=== PATIENT | male | born 1935 | race Caucasian/White ===

== ENCOUNTER 2017-10-08 09:49 | Emergency (ER) | payer MEDICARE, OTHER ==
[2017-10-08 10:37] LABS: #Eosinphils 0.1 thou/uL (0.0-0.7); #Lymphocytes 1.4 thou/uL (1.20-3.40); #Monocytes 0.9 thou/uL (0.11-0.59); #Neutrophils 7.8 thou/uL (1.40-6.50); %Basophils 0.3 % (0.0-1.0); %Eosinophils 0.8 % (0.0-10.0); %Lymphocytes 13.4 % (21.0-51.0); %Monocytes 8.3 % (0.0-10.0); %Neutrophils 77.1 % (42.0-75.0); Hemoglobin 14.1 g/dL (14.0-18.0); Mean Corpuscular HGB CONC 34.6 g/dL (32.0-36.0); Mean Corpuscular Hemoglobin 34.7 pg (27.0-31.0); Mean Platelet Volume 9.7 fL (7.4-10.4); Platelet Count 132 thou/uL (130-400); Red Blood Cell (RBC) Count 4.07 mill/uL (4.70-6.10); White Blood Cell (WBC) Count 10.2 thou/uL (4.8-10.8)
[2017-10-08 11:02] LABS: ALT (SGPT) 9 U/L (8-55); AST (SGOT) 16 U/L (5-34); Albumin 3.9 g/dL (3.4-4.8); Alkaline Phosphatase 71 U/L (40-150); Anion Gap 15 mmol/L (10-20); BUN (Urea Nitrogen) 25 mg/dL (8.4-25.7); Bilirubin, Total 0.6 mg/dL (0.2-1.2); Calc. Creatinine Clearance 0 mL/min (70-130); Calcium 9.4 mg/dL (7.8-10.44); Carbon Dioxide 26 mmol/L (23-31); Chloride 102 mmol/L (98-107); Estimated GFR-MDRD 54; Globulin 2.5 g/dL (2.4-3.5); Glucose 154 mg/dL (83-110); Lipase Less than 4 U/L (8-78); Potassium 4.6 mmol/L (3.5-5.1); Protein, Total 6.4 g/dL (5.8-8.1); Sodium 138 mmol/L (136-145)
[2017-10-08 13:10] LABS: CKMB 0.9 ng/mL (0-6.6); Troponin I Less than 0.010 ng/mL (< 0.028)
--- NOTE | 2017-10-08 14:07 | RAD ---
4 VIEWS LEFT KNEE: Date: 10/08/17 HISTORY: Left knee pain after fall. FINDINGS: AP, lateral, and both oblique views of left knee obtained. Four views of the left knee demonstrate os teophytes seen in the medial compartment of the left knee. There are some sclerotic changes, as well as flattening of the medial tibial plateau. Osteophytes also seen in the lateral compartment and extensive osteophytes seen in the anterior marisa rtment of the left knee. IMPRESSION: Extensive left knee osteoarthritic changes. POS: KELLY
[2017-10-08 14:21] LABS: Bilirubin Negative (Negative); Blood, Urine Negative (Negative); Clarity CLEAR (Clear); Glucose, Urine (Dipstick) Negative (Negative); Leukocyte Trace (Negative); Nitrite Negative (Negative); Protein, Urine (Dipstick) Trace mg/dL (Neg-Trace); Specific Gravity, Urine 1.018 (1.002-1.036); pH, Urine 6.5 (5.0-9.0)
--- NOTE | 2017-10-08 14:21 | CT ---
CT BRAIN WITHOUT CONTRAST; Date: 10/08/17 HISTORY: Altered mental status. FINDINGS: Comparison made with exam of 08/10/15. No evidence of infarct, hemorrhage, midline shift, or abnormal extra-axial fluid collections are seen . The ventricular size is stable and the basilar cisterns are patent. The bony calvarium is intact. T he visualized paranasal sinuses are well aerated. IMPRESSION: No CT evidence of acute intracranial process. POS: OFF
[2017-10-08 14:24] LABS: Bacteria/HPF None Seen HPF (None Seen); Hyaline Casts/LPF 7-10 HYALINE CAST LPF (0-3 Hyaline); Pathc Cast-AUWi Flag 1.01 (0-2.49); Squamous Epithelial 0-3 HPF (0-3); WBC/HPF 0-3 HPF (0-3)
[2017-10-08 14:25] LABS: Renal Epithelial None Seen HPF (0-3); Transitional Epithelial NONE SEEN HPF (0-3)
== END 2017-10-08 15:07 | disposition home or self-care (01) ==
LOC: ERS 09:49
DX: F03.90 Unspecified dementia, unspecified severity, without behavioral disturbance, psychotic disturbance, mood disturbance, and anxiety (principal); M19.90 Unspecified osteoarthritis, unspecified site; E78.5 Hyperlipidemia, unspecified; I10 Essential (primary) hypertension; M10.9 Gout, unspecified; Z79.82 Long term (current) use of aspirin; Z79.899 Other long term (current) drug therapy; W19.XXXA Unspecified fall, initial encounter; Y92.009 Unspecified place in unspecified non-institutional (private) residence as the place of occurrence of the external cause
CPT/HCPCS: 51701; 70450; 80053; 81003; 81015; 82140; 82553; 83690; 84484; 85025

== ENCOUNTER 2017-10-09 20:41 | Inpatient (IN) | payer MEDICARE, OTHER ==
[~2017-10-09 20:41] MED LIST: ISOVUE-370 76%-LOCM 1 ML ONE
[2017-10-09 21:04] LABS: Bilirubin Negative (Negative); Blood, Urine Negative (Negative); Clarity CLEAR (Clear); Glucose, Urine (Dipstick) Negative (Negative); Leukocyte Trace (Negative); Nitrite Negative (Negative); Protein, Urine (Dipstick) Negative (Neg-Trace); Specific Gravity, Urine 1.016 (1.002-1.036); Urobilinogen 0.2 mg/dL (0.2-1.0); pH, Urine 5.5 (5.0-9.0)
[2017-10-09 21:05] LABS: Bacteria/HPF None Seen HPF (None Seen); Hyaline Casts/LPF 0-3 HYALINE CAST LPF (0-3 Hyaline); Pathc Cast-AUWi Flag 0.29 (0-2.49); Squamous Epithelial 0-3 HPF (0-3); WBC/HPF 0-3 HPF (0-3)
[2017-10-09 21:07] LABS: Yeast-AUWi Flag 40.9 (0-25.0)
[2017-10-09 21:17] LABS: RBC/HPF 0-3 HPF (0-3)
[2017-10-09 22:17] LABS: #Lymphocytes 0.8 thou/uL (1.20-3.40); #Monocytes 0.8 thou/uL (0.11-0.59); %Basophils 0.2 % (0.0-1.0); %Eosinophils 0.5 % (0.0-10.0); %Lymphocytes 9.3 % (21.0-51.0); %Monocytes 9.4 % (0.0-10.0); %Neutrophils 80.6 % (42.0-75.0); Hemoglobin 14.2 g/dL (14.0-18.0); Mean Corpuscular HGB CONC 35.3 g/dL (32.0-36.0); Mean Corpuscular Hemoglobin 34.7 pg (27.0-31.0); Mean Corpuscular Volume 98.3 fL (78.0-98.0); Mean Platelet Volume 9.2 fL (7.4-10.4); Platelet Count 128 thou/uL (130-400); RBC Distribution Width 12.6 % (11.5-14.5); Red Blood Cell (RBC) Count 4.09 mill/uL (4.70-6.10); White Blood Cell (WBC) Count 8.7 thou/uL (4.8-10.8)
[2017-10-09 23:03] LABS: ALT (SGPT) 11 U/L (8-55); AST (SGOT) 22 U/L (5-34); Albumin 3.8 g/dL (3.4-4.8); Alkaline Phosphatase 71 U/L (40-150); Anion Gap 16 mmol/L (10-20); BUN (Urea Nitrogen) 32 mg/dL (8.4-25.7); Bilirubin, Total 0.5 mg/dL (0.2-1.2); CK (CPK) 49 U/L (30-200); Calc. Creatinine Clearance 0 mL/min (70-130); Calcium 9.5 mg/dL (7.8-10.44); Carbon Dioxide 24 mmol/L (23-31); Chloride 102 mmol/L (98-107); Estimated GFR-MDRD 38; Globulin 2.6 g/dL (2.4-3.5); Glucose 134 mg/dL (83-110); Lipase 4 U/L (8-78); Potassium 4.5 mmol/L (3.5-5.1); Protein, Total 6.4 g/dL (5.8-8.1); Sodium 137 mmol/L (136-145)
[2017-10-09 23:07] LABS: Troponin I Less than 0.010 ng/mL (< 0.028)
[2017-10-09] MEDS ORDERED: Acetaminophen 500 MG TAB ONE (23:32)
[2017-10-10] MEDS ORDERED: Lorazepam 2 MG/ML VIAL ONE (00:10)
[2017-10-10] MEDS ORDERED: Ziprasidone 20 MG VIAL ONE (01:13)
[2017-10-10] MEDS ORDERED: Meropenem 1 GM in Sodium Chloride 0.9% 100 ML IVPB SCH ×2 (02:15→10:00)
[2017-10-10] MEDS ORDERED: Acetaminophen 325 MG TAB PO PRN ×2 (03:02→16:34)
[2017-10-10] MEDS ORDERED: Ondansetron ODT 4 MG TAB SL PRN (03:02)
[2017-10-10] MEDS ORDERED: Sodium Chloride 0.9% 1,000 ML IV SCH (03:02)
[2017-10-10] MEDS ORDERED: Ondansetron HCl/PF 4 MG/2 ML Vial IVP PRN (03:02)
[2017-10-10 03:12] VITALS: BMI 32.7
[2017-10-10] MEDS ORDERED: Prevnar 13-Val Conj/PF 0.5 ML SYRINGE IM ONE (09:00)
[2017-10-10 09:25] LABS: #Eosinphils 0.1 thou/uL (0.0-0.7); #Lymphocytes 0.9 thou/uL (1.20-3.40); #Monocytes 1.1 thou/uL (0.11-0.59); #Neutrophils 6.5 thou/uL (1.40-6.50); %Basophils 0.3 % (0.0-1.0); %Eosinophils 0.8 % (0.0-10.0); %Lymphocytes 10.5 % (21.0-51.0); %Monocytes 12.8 % (0.0-10.0); %Neutrophils 75.6 % (42.0-75.0); Hemoglobin 13.3 g/dL (14.0-18.0); Mean Corpuscular HGB CONC 35.6 g/dL (32.0-36.0); Mean Corpuscular Hemoglobin 34.9 pg (27.0-31.0); Mean Corpuscular Volume 98.1 fL (78.0-98.0); Mean Platelet Volume 9.6 fL (7.4-10.4); Platelet Count 118 thou/uL (130-400); RBC Distribution Width 12.6 % (11.5-14.5); Red Blood Cell (RBC) Count 3.82 mill/uL (4.70-6.10); White Blood Cell (WBC) Count 8.6 thou/uL (4.8-10.8)
[2017-10-10] MEDS ORDERED: metroNIDAZOLE 500 MG in Premix Bag 1 BAG IVPB SCH (10:00)
[2017-10-10] MEDS: Ciprofloxacin Lactate/D5W 200 MG in Premix Bag 1 BAG IVPB SCH ×2 (10:19→20:30)
[2017-10-10] MEDS: Sodium Chloride 0.9% 1,000 ML IV SCH ×2 (10:32→20:34)
[2017-10-10 10:44] LABS: Lactic Acid 0.8 mmol/L (0.5-2.2)
[2017-10-10 11:35] LABS: Anion Gap 13 mmol/L (10-20); BUN (Urea Nitrogen) 29 mg/dL (8.4-25.7); Calc. Creatinine Clearance 60 mL/min (70-130); Calcium 9.3 mg/dL (7.8-10.44); Carbon Dioxide 27 mmol/L (23-31); Chloride 104 mmol/L (98-107); Estimated GFR-MDRD 51; Glucose 110 mg/dL (83-110); Potassium 4.5 mmol/L (3.5-5.1); Sodium 139 mmol/L (136-145)
[2017-10-10] MEDS: metroNIDAZOLE 500 MG in Premix Bag 1 BAG IVPB SCH ×2 (13:20→22:54)
--- NOTE | 2017-10-10 14:30 | CT ---
PRELIMINARY REPORT/[facility]/EMERGENTY AFTER-HOURS PROCEDURE CT Abdomen and Pelvis With Intravenous Contrast CLINICAL HISTORY: 82 years old, male; fever. Yesterday had fatigue and abdominal pain that went away. Pt started fever and diarrhea on day of arrival. Intermittent confusion worsening past two weeks. HX high BP, dementia , 1 episode of stroke, decreased kidney function, takes lasix mwf. TECHNIQUE: Axial computed tomography images of the abdomen and pelvis with intravenous contrast. Coronal reforma tted images were created and reviewed. CONTRAST: 60 mL of contrast administered intravenously. COMPARISON: No relevant prior studies available. FINDINGS: Lung bases: No acute infiltrate in either lung base. Heart: Coronary artery and aortic / mitral valve annulus calcification. ABDOMEN: Liver: Unremarkable. No mass. Gallbladder and bile ducts: Unremarkable. No calcified stones. No ductal dilation. Pancreas: Unremarkable. No mass. No ductal dilation. Spleen: Unremarkable. No splenomegaly. Adrenals: Unremarkable. No mass. Kidneys and ureters: Unremarkable. No solid mass. No hydronephrosis. Stomach and bowel: Mild wall thickening may involve the cecum and ascending colon, such as with a mil d colitis. No generalized ileus or obstruction. Moderate amount of stool in portions of the colon. Scattered colon diverticuli without evidence of diverticulitis. PELVIS: Appendix: Normal appendix. Bladder: Unremarkable. No mass. Reproductive: Unremarkable as visualized. ABDOMEN and PELVIS: Intraperitoneal space: Unremarkable. No free air. No significant fluid collection. Bones/joints: Spinal degenerative changes. No acute fracture. No dislocation. Soft tissues: Unremarkable. Vasculature: Unremarkable. No abdominal aortic aneurysm. Lymph nodes: Unremarkable. No enlarged lymph nodes. IMPRESSION: 1. Mild wall thickening may involve the cecum and ascending colon, such as with a mild colitis. 2. No generalized ileus or obstruction. Moderate amount of stool in portions of the colon. 3. Scattered colon diverticuli without evidence of diverticulitis. Thank you for allowing us to participate in the care of your patient. Dictated and Authenticated by: Chaz Solorzano MD 10/10/2017 1:26 AM Central Time ([place] & [place]) FINAL REPORT Agree with the preliminary report provided. There is some mild suggested wall thickening involving t he cecum portions of the ascending colon which can reflect an underlying cecitis. The appendix appea rs normal. No drainable fluid collection is evident. No additional overt acute abnormality is evide nt. Other findings as detailed within the preliminary report provided. POS: KELLY
[2017-10-10] MEDS: Gabapentin 300 MG CAP PO SCH (20:30)
[2017-10-10] MEDS ORDERED: HYDROcodone/Acetaminophen 5/325 mg Tablet PO PRN (21:53)
--- NOTE | 2017-10-11 01:20 | HP ---
CHIEF COMPLAINT: Abdominal pain, nausea, vomiting, and diarrhea. HOSPITAL COURSE: Patient is a very pleasant 82-year-old male with a history of hypertension, dementi a, essential tremors and hyperlipidemia who initially presented to the hospital with complaints of fe elvis, abdominal pain and diarrhea. Patient's son who is at the bedside states that normally whenever he starts feeling unwell, his mentation worsens which they noticed since yesterday. Patient's family stated that they brought him to the ER for evaluation; however, upon not finding anything, he was di scharged home. However, yesterday he spiked a fever of 101, which concerned them. He also has been having diarrhea since yesterday, so they brought him to the hospital for further evaluation. Patient currently denies any abdominal pain. He denies any chest pain, shortness of breath, nausea, vomitin g or any headaches. Patient denies any neck pain either. Patient's family stated that he actually fell on the 10th which concerned them that is when they brou ght him for evaluation. PAST MEDICAL HISTORY: 1. Dementia. 2. History of essential tremors. 3. Hypertension. 4. Hypercholesterolemia. SOCIAL HISTORY: Denies any alcohol or tobacco use. Smoking history; however, has a history in the p ast of heavy smoking. PAST SURGICAL HISTORY: He has a prostatectomy. ALLERGIES: He has no known drug allergies. MEDICATIONS: As of the followin. Clonidine 0.1 mg daily. 2. Myrbetriq 25 mg daily. 3. Hydrochlorothiazide 25 mg daily. 4. Lisinopril 40 mg daily. 5. Allopurinol 100 mg daily. 6. Amlodipine 10 mg daily. 7. Aspirin 81 mg daily. 8. Celexa 40 mg daily. 9. Gabapentin 300 mg b.i.d. 10. Latanoprost 1 drop each eye daily. 11. Multivitamin 1 daily. REVIEW OF SYSTEMS: All negative except for the ones mentioned above in the HPI. PHYSICAL EXAMINATION: VITAL SIGNS: Temperature 98.4, pulse 74, 94% on room air, blood pressure 136/67. GENERAL: He is awake, alert, oriented to self only. HEENT: Normocephalic, atraumatic. NECK: No lymphadenopathy noted. LUNGS: Clear to auscultation, rhonchi, wheezes noted. CARDIOVASCULAR: S1, S2 present. No murmurs, rubs or gallops. ABDOMEN: Obese, soft. Bowel sounds are present x2. No pain upon palpation. EXTREMITIES: No edema. NEUROLOGIC: No deficits noted. LABORATORY DATA: As of the following WBCs of 8.6, hemoglobin of 13.3, hematocrit of 37.5, platelets of 118. Coagulation is normal. Chemistry: Sodium of 137, potassium 4.5, BUN of 32, creatinine of 1 .74. Troponins x2 were negative which was done on the 10th. His LFTs are normal. He also had a CT abdomen and pelvis, which indicated some wall thickening involving the cecum portion in the ascending colon which can reflect an underlying cystitis and the appendix appeared to be normal. No diverticu litis was noted. ASSESSMENT AND PLAN: Patient is a very pleasant 82-year-old male who presents to the hospital with c omplaints of abdominal pain, nausea, vomiting, and diarrhea. 1. Abdominal pain and diarrhea. The differential at this time could be infectious colitis versus is chemic colitis given his age. Patient, according to the family, has not eaten out. He eats at home and has eaten the same food that they have been eating. Patient's stool has been sent for C. diff wh ich is negative also ova and parasite has been checked. Stool for leukocyte indicated elevated leuko cytosis. Also, Campylobacter was positive; however, I am not sure if this is true. Patient currentl y just has been spiking a fever. We will continue the Cipro and Flagyl for now and consult GI for an y other evaluation. I did check a lactic acid level which was essentially normal. 2. Chronic kidney disease, stable from his baseline. We will continue to monitor. I will continue some gentle hydration. 3. Mild thrombocytopenia. We will continue to monitor. This could be due to his current infectious process. Patient still appears to be a little confused. He is oriented to himself and his family. We will continue to monitor. Of note, I did look at the patient's urine, it did not seem very impre ssive in terms of a urinary tract infection. His microbiology did indicate gram negative rods, which was 50-75,000 and I do not think his current mental status changes secondary to that. I believe the re is some other etiology in terms of his worsening mental status and also given the fact that he is having diarrhea.
[2017-10-11 05:34] LABS: Anion Gap 11 mmol/L (10-20); BUN (Urea Nitrogen) 22 mg/dL (8.4-25.7); Calc. Creatinine Clearance 77 mL/min (70-130); Calcium 9.2 mg/dL (7.8-10.44); Carbon Dioxide 28 mmol/L (23-31); Chloride 105 mmol/L (98-107); Estimated GFR-MDRD 67; Glucose 111 mg/dL (83-110); Sodium 140 mmol/L (136-145)
[2017-10-11] MEDS: metroNIDAZOLE 500 MG in Premix Bag 1 BAG IVPB SCH ×3 (06:15→22:26)
[2017-10-11 06:33] LABS: Band 12 % (5-11); Eosinophils 1 % (0-10); Hemoglobin 13.2 g/dL (14.0-18.0); Lymphocytes 18 % (21-51); MDiff Complete? YES; Mean Corpuscular HGB CONC 34.9 g/dL (32.0-36.0); Mean Corpuscular Hemoglobin 34.7 pg (27.0-31.0); Mean Corpuscular Volume 99.4 fL (78.0-98.0); Mean Platelet Volume 10.7 fL (7.4-10.4); Monocytes 12 % (0-10); Neutrophil 57 % (42-75); PLT Morphology Comment Appears Decreased; Platelet Count 123 thou/uL (130-400); Polychromasia SLIGHT = 2-3 cells (100X) (0-2/hpf); RBC Distribution Width 12.6 % (11.5-14.5); White Blood Cell (WBC) Count 7.7 thou/uL (4.8-10.8)
[2017-10-11] MEDS ORDERED: Non-Formulary Item 1 EACH (Multivitamin [Daily Multiple Vitamin] 1 TAB) PO SCH (09:00)
[2017-10-11] MEDS ORDERED: Non-Formulary Item 1 EACH (Citalopram Hydrobromide [Celexa] 40 MG) PO SCH (09:00)
[2017-10-11] MEDS: Allopurinol 100 MG TAB PO SCH (09:12)
[2017-10-11] MEDS: Citalopram 20 MG TAB PO SCH (09:12)
[2017-10-11] MEDS: Ezetimibe 10 MG TAB PO SCH (09:12)
[2017-10-11] MEDS: Multivit, Therapeutic 1 TAB PO SCH (09:16)
[2017-10-11] MEDS: Gabapentin 300 MG CAP PO SCH ×2 (09:16→20:25)
[2017-10-11] MEDS: Amlodipine 10 MG TAB PO SCH (09:24)
[2017-10-11] MEDS: Ciprofloxacin Lactate/D5W 200 MG in Premix Bag 1 BAG IVPB SCH ×2 (09:46→20:25)
[2017-10-11] MEDS: Latanoprost 0.005% Ophth Soln 2.5 ml Bottle EA EYE SCH (09:47)
--- NOTE | 2017-10-11 09:58 | CON ---
DATE OF CONSULTATION: 10/10/2017 REASON FOR CONSULTATION: Colitis. HISTORY OF PRESENT ILLNESS: Mr. Rubio is a pleasant 82-year-old gentleman who was admitted to the hospital on the with severe diarrhea and confusion. He had gone to the emergency room on the [facility] of the . His family brought him there as he had worsening in baseline confusion, though that he was never told that he probably just had worsening dementia. He was sent home and also the next day began to have fever and chills and profuse diarrhea and he was brought back to the emergency room by his family. In the first night, he had had a fall and actually CAT scan has had to make sure nohemi t was okay and it was really unchanged from a CAT scan he had several years ago. Also, x-ray'ed the knee which was okay. No signs of fracture. When he returned on the , CAT scan was obtained that showed colitis. Family notes that he just started yesterday with a fever. There were no sick conta cts. The patient lives at home with his son. They all ate the same dinner and no one else became il l. He has had no change in medications recently. There was some mild wall thickening in the cecal p ortion of the ascending colon, which was felt related to be cecitis and inflammation. There was mode rate amount of stool in other parts of the colon, there were no signs of diverticulitis. I talked with the son, who gives most of the history. His father was much more confused yesterday an d is doing much better today. Last night, in fact, he was combative and very confused; this evening, he is actually eating and having a lot less diarrhea. He did not have any bleeding as far as he kne w. ADMITTING PHYSICIAN. None. REVIEW OF SYSTEMS: Really unable to be obtained from the patient, as he is still a little bit confus ed. Constitutional: There was fever, chills, fatigue. No sweats. HEENT: Otherwise, negative, as reviewed per the emergency admission note and the HPI, admitting physician note. I concur with the r eview of systems as documented. PAST MEDICAL HISTORY: Mild dementia. He has had previous colonoscopies and screening in [place], [place] as he is from [place], [place]. Mild hypertension, gout, chronic osteoarthritis. PAST SURGICAL HISTORY: TURP. PSYCHIATRIC HISTORY: Negative. SOCIAL HISTORY: Negative for alcohol, drugs, or tobacco. Lives with the family. HOME MEDICATIONS: Clonidine, multivitamin, Myrbetriq, Mobic, lansoprazole, lisinopril, latanoprost e ye drops, hydrochlorothiazide, hydrocodone p.r.n., gabapentin, Zetia, Celexa, amlodipine, allopurinol . PHYSICAL EXAMINATION: GENERAL: Patient is resting comfortably in bed. He is very pleasant. VITAL SIGNS: Temperature max 99.1, temperature on admission was 101.2, temperature current 98, pulse 58, blood pressure 128/55. GENERAL: He is a large man. He has got some senile sunspots on his arms. Oropharynx without lesion s. His mucous membranes are moist. LUNGS: Clear. HEART: Regular rate and rhythm without clicks or murmurs. ABDOMEN: Soft, nontender without rebound or guarding. LABORATORY DATA AND X-RAY FINDINGS: White count is 8.6, hemoglobin 13.3, platelet count is 118 down from 127 on admission. INR was 1. Sodium 137, potassium 4.5, BUN and creatinine were 32 and 1.7 on admission, now 29 and 1.34. Liver function tests were normal. Lipase was 4. Stool studies were pos itive. Urine was positive for Gram-negative rods. Parasite screen was negative for cryptosporidium and Giardia. C. difficile was negative, toxin antigen. Campylobacter positive for Campylobacter ant igen, negative, toxin. Sugars, lactoferrin in stool positive. Stool cultures pending. ASSESSMENT: This patient was admitted to the hospital, after coming to the hospital the night before with confusion; however, the next day developed fever and severe diarrhea and was at worsening confu eben, some signs of mild dehydration, some cecitis on CAT scan. Stools growing out were showing posi tive Campylobacter antigen. I suspect the patient has had an infectious colitis; it could be Campylo bacter, it may be something viral or something else. Campylobacter antigen here seems to be positive , quite frequently negative with it not being detected in stool cultures. He has responded well to I V fluids and antibiotics have been chosen. I would continue that course of treatment. I will slowly advance his diet. Tomorrow, if he is getting out of bed and walking and if he is less confused, hop efully, maybe he can go home in about 48 hours on Saturday. We will follow along with you.
[2017-10-11] MEDS: Sodium Chloride 0.9% 1,000 ML IV SCH (12:52)
--- NOTE | 2017-10-11 13:42 | PRG ---
DATE OF SERVICE: 10/11/2017 SUBJECTIVE: Mr. Rubio and his son noticed he is having less diarrhea down to about 4 today, althou gh he is having some incontinence, though he has had no fever. PHYSICAL EXAMINATION: VITAL SIGNS: Temperature is 97.9, pulse 58, blood pressure 143/80. GENERAL: He is more alert, more coherent. LUNGS: Clear. ABDOMEN: Soft and nontender. EXTREMITIES: No clubbing, cyanosis or edema. LABORATORY STUDIES: White count 7.7, hemoglobin 13.2, platelet count 123. Sodium 140, potassium 4, BUN and creatinine are 22 and 1.05. ASSESSMENT: Severe diarrheal illness. Only findings thus far is been the stool that is positive for Campylobacter antigen. This may not be the true pathogen, but I think an infectious etiology would explain how sick he was. He seems to be improving. RECOMMENDATIONS: 1. Five days of fluoroquinolone and Flagyl on discharge. 2. Probiotic on discharge. 3. Advance diet. 4. Physical therapy. I think once he regained some bowel incontinence, he can probably go home, hop efully that will be the next day or two. At this time, we will follow from a distance. Dr. Flores i will be plant technician/control room operator over the weekend if needed.
--- NOTE | 2017-10-11 14:50 | PQF ---
DATE: 10-11-17 ATTN: DR. CLARK WATKINS Please exercise your independent, professional judgment in responding to the clarification form. Clinical indicators are provided on the bottom of this form for your review Please check appropriate box(s): [ x ] Encephalopathy: Type: [ x] Acute [ ] Subacute [ ] Chronic Etiology: [ ] Hypertensive [ x] Metabolic [ ] [ ] in the setting of underlying dementia [ ] Other (please specify) [ ] Transient Alteration of Awareness [ ] Other diagnosis [ ] Unable to determine In addition, please specify: Present on Admission (POA): [ x ] Yes [ ] No [ ] Unable to determine For continuity of documentation, please document condition throughout progress notes and discharge summary. Thank You. CLINICAL INDICATORS - SIGNS / SYMPTOMS / LABS ER: CONFUSION IS OFF AND ON AND GOTTEN WORSE THROUGH THE PAST 2 WKS. HX DEMENTIA, HISTORIAN REPORTS CONFUSION, PT BECAME MORE CONFUSED AND SLIGHTLY COMBATIVE, BUT CALMED DOWN WITH PRESENCE OF FAMILY. H&P: PATIENTS SON WHO IS AT BEDSIDE STATES NICO NORMALLY WHENEVER HE STARTS FEELING UNWELL, HIS MENTATION WORSENS WHICH THEY NOTICED SINCE YESTERDAY. I BELIEVE THERE IS SOME OTHER ETIOLOGY IN TERMS OF HIS WORSENING MENTAL STATUS RISK FACTORS : H&P: ABD PAIN AND DIARRHEA. THE DIFFERENTIAL AT THIS TIME COULD BE INFECTIOUS COLITIS VS ISCHEMIC COLITIS, CAMPYLOBACTER WAS POSITIVE, MILD DEHYDRATION TREATMENTS: ER: MEROPENEM IV, IVF, FLAGYL IV, CIPRO IV (This form is maintained as a part of the permanent medical record) 2014 [employer], [place]. All Rights Reserved ANICETO [email or web address] Office: [phone] HENOK
--- NOTE | 2017-10-11 15:07 | PQF ---
DATE: 10-11-17 ATTN: DR. CLARK WATKINS Please exercise your independent, professional judgment in responding to the clarification form. Clinical indicators are provided on the bottom of this form for your review Please check appropriate box(s): [ x ] Acute Renal Failure (ARF) / Acute Kidney Injury (CARMEN) [ ] Acute on Chronic Renal Failure please specify Stage of CKD (see below) [ ] CKD without ARF/CARMEN please specify Stage of CKD [ ] Other diagnosis [ ] Unable to determine In addition, please specify: Present on Admission (POA): [x ] Yes [ ] No [ ] Unable to determine National Kidney Foundation Guidelines for CKD Staging Stage I Kidney damage with normal or increased GFR GFR > 90 Stage II Kidney damage with mildly decreased GFR GFR 60-89 Stage III Kidney damage with moderately decreased GFR GFR 30- 59 Stage IV Kidney damage with severely decreased GFR GFR 16- 29 Stage V Kidney failure GFR<15 ESRD End Stage Renal Disease On dialysis Acute Renal Failure/Acute Kidney Failure defined as: Increases in SCr by (>) 0.3 mg/dl within 48 hours OR- Increases in SCr by (>) 1.5 times baseline, known or presumed to have occurred within the prior 7 days OR- Urine volume < 0.5 ml/kg/hour for 6 hours (KDIGO supplement 2012 for RIFLE/MELYSSA criteria) For continuity of documentation, please document condition throughout progress notes and discharge summary. Thank You. CLINICAL INDICATORS - SIGNS / SYMPTOMS / LABS ER: HX OF DECREASED KIDNEY FUNCTION, TAKES LASIX MWF, FEVER AND DIARRHEA GFR: 10-09-17: 38 10-10-17: 51 10-11-17: 67 CREATININE: 10-09-17: 1.47 10-10-17: 1.34 10-11-17: 1.05 BUN: 10-09-17: 32 10-10-17: 29 10-11-17: 22 H&P: CHRONIC KIDNEY DISEASE, STABLE FROM BASELINE. WE WILL CONTINUE TO MONITOR. I WILL CONTINUE SOME GENTLE HYDRATION. RISK FACTORS: H&P: CHRONIC KIDNEY DISEASE, STABLE FROM BASELINE. WE WILL CONTINUE TO MONITOR. I WILL CONTINUE SOME GENTLE HYDRATION. ER: HX OF DECREASED KIDNEY FUNCTION, TAKES LASIX MWF, FEVER AND DIARRHEA TREATMENTS: H&P: CHRONIC KIDNEY DISEASE, STABLE FROM BASELINE. WE WILL CONTINUE TO MONITOR. I WILL CONTINUE SOME GENTLE HYDRATION. MAR: IVF (This form is maintained as a part of the permanent medical record) 2014 [employer]. All Rights Reserved ANICETO [email or web address] Office: [phone] HENOK
--- NOTE | 2017-10-11 16:54 | PDOC.PN ---
- Subjective Encounter Start Date: 10/11/17 Encounter Start Time: 13:00 PAtient Is seen todayk along with Son at [facility]. Pt still has Diarrhea, and Incontinence, he is very weak, waiting on pT evaluation. - Objective MAR Reviewed: Yes Vital Signs & Weight: Vital Signs (12 hours) Temp Pulse Resp BP BP Pulse Ox 10/11/17 09:24 58 L 143/80 H 10/11/17 08:36 97.9 F 58 L 20 143/80 H 98 10/11/17 08:00 97.9 F 58 L 18 94 L 10/11/17 05:16 98.1 F 61 18 144/69 H 95 Weight Weight 228 lb I&O: 10/10/17 10/11/17 10/12/17 06:59 06:59 06:59 Intake Total 268 Output Total 120 Balance 148 Result Diagrams: 10/11/17 04:33 10/11/17 04:33 Radiology Reviewed by me: Yes Phys Exam - Physical Examination HEENT: PERRLA, moist MMs Neck: no nodes, no JVD Respiratory: no wheezing, no rales Cardiovascular: RRR, no significant murmur Gastrointestinal: soft, non-tender Musculoskeletal: no edema, pulses present Neurological: non-focal, normal sensation Lymphatic: no nodes Psychiatric: normal affect, A&O x 3 Skin: no rash, normal turgor Dx/Plan (1) Dehydration, moderate Code(s): E86.0 - DEHYDRATION Status: Acute Comment: Will continue with IV fluids. Feeling better. (2) Diarrhea Code(s): R19.7 - DIARRHEA, UNSPECIFIED Status: Acute Comment: Will continue with CIpro and flagyl,IV. Stool cultures positive for Campylobacter. GI on Board. No bleeding. pt is very weak, will need Pt/OT evaalutions. (3) Morbid obesity Code(s): E66.01 - MORBID (SEVERE) OBESITY DUE TO EXCESS CALORIES Status: Acute - Plan cont current plan of care, plan discussed w/ family, continue antibiotics, PT/OT , professor of social work, incentive spirometry, DVT proph w/lovenox * . Review of Systems - Review of Systems Eyes: negative: Pain, Vision Change, Conjunctivae Inflammation, Eyelid Inflammation, Redness, Other ENT: negative: Ear Pain, Ear Discharge, Nose Pain, Nose Discharge, Nose Congestion, Mouth Pain, Mouth Swelling, Throat Pain, Throat Swelling, Other Respiratory: negative: Cough, Dry, Shortness of Breath, Hemoptysis, SOB with Excertion, Pleuritic Pain, Sputum, Wheezing Cardiovascular: negative: chest pain, palpitations, orthopnea, paroxysmal nocturnal dyspnea, edema, light headedness, other Gastrointestinal: Diarrhea. negative: Nausea, Vomiting, Abdominal Pain, Constipation, Melena, Hematochezia, Other Genitourinary: negative: Dysuria, Frequency, Incontinence, Hematuria, Retention , Other Musculoskeletal: negative: Neck Pain, Shoulder Pain, Arm Pain, Back Pain, Hand Pain, Leg Pain, Foot Pain, Other Skin: negative: Rash, Lesions, Kaz, Bruising, Other Neurological: negative: Weakness, Numbness, Incoordination, Change in Speech, Confusion, Seizures, Other - Medications/Allergies Allergies/Adverse Reactions: Allergies Allergy/AdvReac Type Severity Reaction Status Date / Time No Known Drug Allergies Allergy Verified 10/10/17 03:16 Medications: Current Medications Acetaminophen (Tylenol) 650 mg PO Q6H PRN PRN Reason: Pain Hydrocodone Bitart/Acetaminophen ([place] 5/325) 1 tab PO Q6H PRN PRN Reason: Pain Allopurinol (Zyloprim) 100 mg PO DAILY [facility] Last Admin: 10/11/17 09:12 Dose: 100 mg Amlodipine Besylate (Norvasc) 10 mg PO DAILY [facility] Last Admin: 10/11/17 09:24 Dose: 10 mg Citalopram Hydrobromide (Celexa) 40 mg PO DAILY [facility] Last Admin: 10/11/17 09:12 Dose: 40 mg Ezetimibe (Zetia) 10 mg PO DAILY [facility] Last Admin: 10/11/17 09:12 Dose: 10 mg Gabapentin (Neurontin) 300 mg PO BID [facility] Last Admin: 10/11/17 09:16 Dose: 300 mg Sodium Chloride (Normal Saline 0.9%) 1,000 mls @ 70 mls/hr IV .[id number] [facility] Last Admin: 10/11/17 12:52 Dose: 1,000 mls Ciprofloxacin/Dextrose 200 mg/ (Device) 100 mls @ 100 mls/hr IVPB Q12HR [facility] Last Admin: 10/11/17 09:46 Dose: 100 mls Metronidazole 500 mg/ Device 100 mls @ 100 mls/hr IVPB Q8H [facility] Last Admin: 10/11/17 15:19 Dose: 100 mls Latanoprost (Xalatan 0.005% [facility]) 1 drop EA EYE DAILY [facility] Last Admin: 10/11/17 09:47 Dose: 1 drp Multivitamins (Theragran) 1 tab PO DAILY [facility] Last Admin: 10/11/17 09:16 Dose: 1 tab Sodium Chloride (Flush - Normal Saline) 10 ml IVF Q12HR [facility] Last Admin: 10/11/17 12:50 Dose: Not Given Sodium Chloride (Flush - Normal Saline) 10 ml IVF PRN PRN PRN Reason: Saline Flush
[2017-10-12] MEDS: metroNIDAZOLE 500 MG in Premix Bag 1 BAG IVPB SCH ×2 (05:31→13:43)
[2017-10-12] MEDS: Sodium Chloride 0.9% 1,000 ML IV SCH (05:31)
[2017-10-12] MEDS: Citalopram 20 MG TAB PO SCH (08:45)
[2017-10-12] MEDS: Gabapentin 300 MG CAP PO SCH (08:45)
[2017-10-12] MEDS: Allopurinol 100 MG TAB PO SCH (08:45)
[2017-10-12] MEDS: Latanoprost 0.005% Ophth Soln 2.5 ml Bottle EA EYE SCH (08:46)
[2017-10-12] MEDS: Ezetimibe 10 MG TAB PO SCH (08:46)
[2017-10-12] MEDS: Amlodipine 10 MG TAB PO SCH (08:46)
[2017-10-12] MEDS: Multivit, Therapeutic 1 TAB PO SCH (08:46)
[2017-10-12] MEDS: Ciprofloxacin Lactate/D5W 200 MG in Premix Bag 1 BAG IVPB SCH (08:46)
[2017-10-12 16:03] VITALS: TEMP 97.4
--- NOTE | 2017-10-12 17:01 | DIS ---
DATE OF ADMISSION: 10/10/2017 DATE OF DISCHARGE: 10/12/2017 ADMITTING DIAGNOSIS: Acute infectious diarrhea. DISCHARGE DIAGNOSIS: Acute infectious diarrhea. SECONDARY DIAGNOSES: 1. Acute Campylobacter gastroenteritis. 2. Severe diarrhea. 3. Severe dehydration. 4. Altered mental status. CORPORATE HEALTH CONSULTANT INVOLVED IN THE CARE: Dr. Earl Adam from GI. HISTORY OF PRESENT ILLNESS AND HOSPITAL COURSE: In brief, this is an 82-year-old morbidly obese whit e male with a known history of dementia and hypertension who presented to the hospital with severe di arrhea associated with worsening of his mental status and dementia. The patient lives with his son stefania nd is having persistent diarrhea with a fever of 101 associated with abdominal pain. The patient was started on IV antibiotics with ciprofloxacin and Flagyl and GI was consulted because of the worsenin g colitis seen on the CT. The patient showed good improvement with IV antibiotics with IV hydration and stool culture was growing Campylobacter. As the patient was started on Cipro and Flagyl, it show ed good improvement, but the patient had difficulty with his nausea because of the Flagyl. Since the day of discharge, it was changed to azithromycin 500 mg to continue for 3 more days. The patient wa s stable and advised to continue with IV hydration and discharged home in stable condition. PHYSICAL EXAMINATION: VITAL SIGNS: On the day of discharge, blood pressure is 165/66, heart rate is 54, respiration rate o f 16, saturation 95% on room air. CARDIOVASCULAR: S1, S2 normal. No murmurs, rubs or gallops. LUNGS: Bilateral air entry was equal. No wheezing, no crackles. ABDOMEN: Soft, nontender, no guarding, no rebound tenderness. Bowel sounds normal. MUSCULOSKELETAL: No calf tenderness. No pedal edema. No joint tenderness, no joint swelling. DISCHARGE MEDICATIONS: Azithromycin 500 mg p.o. daily for 3 more days, allopurinol 100 mg p.o. daily , amlodipine 10 mg p.o. daily, aspirin 81 mg p.o. daily, citalopram 40 mg p.o. daily, clonidine 0.1 mg p.o. daily, gabapentin 300 mg p.o. b.i.d., ezetimibe 10 mg p.o. daily, hydrochlorothiazide 25 mg p .o. daily, lisinopril 40 mg p.o. daily, Meloxicam 50 mg p.o. daily, Myrbetriq 25 mg p.o. daily. DISCHARGE INSTRUCTIONS: Continue activity as tolerated. Advised to follow up with the primary care physician in 1-2 weeks. Advised to continue p.o. hydration. Advised to return back to the ER if the patient develops severe diarrhea with fever. I spent 35 minutes with this patient on day of discharge.
[2017-10-12 18:48] VITALS: BP 160/73
== END 2017-10-12 16:13 | disposition home or self-care (01) | DRG 371 ==
LOC: ERS 20:41 → T4-A 10-10 01:51
PROVIDERS: ADMIT Internal Medicine; ATTEND Internal Medicine
DX: A04.5 Campylobacter enteritis (principal); G93.41 Metabolic encephalopathy; N17.9 Acute kidney failure, unspecified; E86.0 Dehydration; D69.6 Thrombocytopenia, unspecified; E66.01 Morbid (severe) obesity due to excess calories; F03.90 Unspecified dementia, unspecified severity, without behavioral disturbance, psychotic disturbance, mood disturbance, and anxiety; I12.9 Hypertensive chronic kidney disease with stage 1 through stage 4 chronic kidney disease, or unspecified chronic kidney disease; N18.9 Chronic kidney disease, unspecified; G25.0 Essential tremor; E78.5 Hyperlipidemia, unspecified; Z68.32 Body mass index [BMI] 32.0-32.9, adult; Z79.82 Long term (current) use of aspirin; Z79.899 Other long term (current) drug therapy
CPT/HCPCS: 36415; 51701; 70450; 74177; 80048; 80053; 81003; 81015; 82140; 82553; 83605; 83630; 83690; 84484; 85025; 87040; 87045; 87046; 87077; 87086; 87186; 87324; 87328; 87329; 87449; 87899; 93005; 96360; 96361; 96372; A4216; G8978-GP-CI; G8979-GP-CI; G8980-GP-CI; G8987-GO-CJ; G8988-GO-CH; J0744; J2060; J2185; J3486; J7050

== ENCOUNTER 2017-10-17 15:30 | Inpatient (IN) | payer MEDICARE, OTHER ==
[2017-10-17 16:53] LABS: Hemoglobin 14.4 g/dL (14.0-18.0); Mean Corpuscular HGB CONC 35.1 g/dL (32.0-36.0); Mean Corpuscular Hemoglobin 34.7 pg (27.0-31.0); Mean Corpuscular Volume 98.7 fL (78.0-98.0); Mean Platelet Volume 10.3 fL (7.4-10.4); Platelet Count 193 thou/uL (130-400); RBC Distribution Width 12.9 % (11.5-14.5); Red Blood Cell (RBC) Count 4.16 mill/uL (4.70-6.10); White Blood Cell (WBC) Count 18.2 thou/uL (4.8-10.8)
[2017-10-17 17:25] LABS: Band 4 % (5-11); Lymphocytes 2 % (21-51); MDiff Complete? YES; Monocytes 3 % (0-10); Neutrophil 91 % (42-75); PLT Morphology Comment Appears Adequate
[2017-10-17 17:52] LABS: Albumin 3.6 g/dL (3.4-4.8)
[2017-10-17 17:53] LABS: Chloride 105 mmol/L (98-107); Potassium 4.8 mmol/L (3.5-5.1); Sodium 139 mmol/L (136-145)
[2017-10-17 17:54] LABS: Glucose 97 mg/dL (83-110)
[2017-10-17 17:55] LABS: Globulin 2.4 g/dL (2.4-3.5)
[2017-10-17 17:56] LABS: Anion Gap 15 mmol/L (10-20); Bilirubin, Total 0.7 mg/dL (0.2-1.2); Carbon Dioxide 24 mmol/L (23-31)
[2017-10-17 17:57] LABS: Alkaline Phosphatase 110 U/L (40-150)
[2017-10-17 17:58] LABS: Calc. Creatinine Clearance 0 mL/min (70-130); Estimated GFR-MDRD 67
[2017-10-17 17:59] LABS: AST (SGOT) 106 U/L (5-34); BUN (Urea Nitrogen) 27 mg/dL (8.4-25.7)
[2017-10-17 18:00] LABS: ALT (SGPT) 97 U/L (8-55)
[2017-10-17 20:15] LABS: Bilirubin Negative (Negative); Blood, Urine Negative (Negative); Clarity CLEAR (Clear); Glucose, Urine (Dipstick) Negative (Negative); Leukocyte Small (Negative); Nitrite Negative (Negative); Protein, Urine (Dipstick) Negative (Neg-Trace); Specific Gravity, Urine 1.018 (1.002-1.036); Urobilinogen 0.2 mg/dL (0.2-1.0)
[2017-10-17 20:17] LABS: Bacteria/HPF None Seen HPF (None Seen); Hyaline Casts/LPF 0-3 HYALINE CAST LPF (0-3 Hyaline); Squamous Epithelial None Seen HPF (0-3)
[2017-10-17] MEDS ORDERED: metroNIDAZOLE 500 MG in Premix Bag 1 BAG IVPB SCH (21:15)
[2017-10-17] MEDS ORDERED: Ondansetron ODT 4 MG TAB SL PRN (22:50)
[2017-10-17] MEDS ORDERED: Ondansetron HCl/PF 4 MG/2 ML Vial IVP PRN (22:50)
[2017-10-17] MEDS ORDERED: HYDROcodone/Acetaminophen 5/325 mg Tablet PO PRN (23:31)
[2017-10-18] MEDS: Sodium Chloride 0.9% 1,000 ML IV SCH ×4 (00:21→21:23)
[2017-10-18 00:45] VITALS: BMI 33.8
[2017-10-18] MEDS: Acetaminophen 325 MG TAB PO PRN (01:32)
[2017-10-18 04:25] LABS: Anion Gap 13 mmol/L (10-20); BUN (Urea Nitrogen) 26 mg/dL (8.4-25.7); Calc. Creatinine Clearance 71 mL/min (70-130); Calcium 9.3 mg/dL (7.8-10.44); Carbon Dioxide 26 mmol/L (23-31); Chloride 105 mmol/L (98-107); Estimated GFR-MDRD 59; Glucose 109 mg/dL (83-110); Potassium 4.3 mmol/L (3.5-5.1); Sodium 140 mmol/L (136-145)
[2017-10-18] MEDS: metroNIDAZOLE 500 MG in Premix Bag 1 BAG IVPB SCH ×3 (05:46→21:23)
[2017-10-18 06:05] LABS: Band 33 % (5-11); Hemoglobin 14.1 g/dL (14.0-18.0); Lymphocytes 2 % (21-51); MDiff Complete? YES; Mean Corpuscular HGB CONC 33.9 g/dL (32.0-36.0); Mean Corpuscular Hemoglobin 33.7 pg (27.0-31.0); Mean Corpuscular Volume 99.6 fL (78.0-98.0); Mean Platelet Volume 9.7 fL (7.4-10.4); Monocytes 6 % (0-10); Neutrophil 59 % (42-75); Platelet Count 190 thou/uL (130-400); RBC Distribution Width 12.9 % (11.5-14.5); Red Blood Cell (RBC) Count 4.18 mill/uL (4.70-6.10); White Blood Cell (WBC) Count 24.1 thou/uL (4.8-10.8)
[2017-10-18] MEDS ORDERED: Enoxaparin Sodium 40 MG/0.4 ML SYRINGE SC SCH (09:00)
[2017-10-18] MEDS ORDERED: Amlodipine 10 MG TAB PO SCH (09:00)
[2017-10-18] MEDS ORDERED: Citalopram 20 MG TAB PO SCH (09:00)
[2017-10-18] MEDS ORDERED: cloNIDine 0.1 MG TAB PO SCH (09:00)
[2017-10-18] MEDS ORDERED: Meloxicam 15 MG TAB PO SCH (09:00)
[2017-10-18] MEDS ORDERED: Azithromycin 250 MG TAB PO SCH (09:00)
--- NOTE | 2017-10-18 09:11 | HP ---
CODE STATUS: DNR/DNI as per patient's living will and is verified with patient's son and patient's d [id number] at bedside. PRIMARY CARE PHYSICIAN: Dr. Concepcion. TIME OF EVALUATION: 10:00 p.m. CHIEF COMPLAINT: Worsening confusion and diarrhea. HISTORY OF PRESENT ILLNESS: This is an 82-year-old patient with underlying dementia; however, patien t is able to function and do most of his activities of daily living. Patient had been recently admit edilberto to the hospital, diagnosed with enterocolitis, and sent home on antibiotics. As per son, patient had been getting better; however, yesterday, patient started having again frequent diarrhea, watery, blockage. Temperature was measured in ER, it was 101.7. Patient has associated confusion, no clear triggers, no associated factors, no alleviating factors. REVIEW OF SYSTEMS: Unable to obtain. Patient is confused, does not answer properly. PAST MEDICAL HISTORY: Gout, early dementia, hyperlipidemia, hypertension. FAMILY HISTORY: Reviewed and noncontributory for current presentation. PAST SURGICAL HISTORY: TURP in 2008, hemorrhoidectomy. PSYCHIATRIC HISTORY: Anxiety. SOCIAL HISTORY: Patient denies alcohol. No drugs. No smoking history verified with the patient's s on. DRUG ALLERGIES: No known drug allergies. REPORTED MEDICATIONS: Hydrochlorothiazide, citalopram, amlodipine, allopurinol, aspirin, lisinopril, gabapentin, latanoprost, clonidine, meloxicam, Lasix, oxybutynin, and [place]. PHYSICAL EXAMINATION: VITAL SIGNS: On presentation, blood pressure 121/70 with heart rate 81, respiratory rate was 20, tem perature 100.7. GENERAL: Patient is alert and oriented, not in any acute distress. HEENT: Eyes, normal conjunctivae. Moist oral mucosa, anicteric. NECK: No JVD. RESPIRATORY: Bilateral air entry. No rales, no wheezes. Symmetric expansion. CARDIOVASCULAR: Normal rate, regular rhythm. No murmurs, no gallop. No edema. ABDOMEN: Soft, normal bowel sounds. MUSCULOSKELETAL: Baseline range of motion and strength. No tenderness. SKIN: Warm and intact. No pallor, no rash, no redness. NEUROLOGIC: Patient is confused. No evidence of any acute neurological deficit, I am unable to ____ _ patient is noncooperative. PSYCHIATRIC: Suboptimal judgment, underlying dementia, patient is encephalopathic. LABORATORY DATA: Reviewed. The patient has white count 18.2, hemoglobin 14.4, MCV 98.7, platelet co unt 193. Sodium 139, potassium 4.8, chloride 105, carbon dioxide 24, anion gap 15, BUN 27, creatinin e 1.0, GFR 67, glucose 97. Lactic acid 1.3, calcium 9.0. Total bilirubin 0.7, AST 106, ALT 97. UA was reviewed. The patient has white count of 4 to 6. ASSESSMENT AND PLAN: The patient will be placed in the hospital with following medical problems: 1. Enteritis, likely recurrent, patient had been discharged recently and then gone home on Zithroma x. He continued to take and was improving as per patient's son; however, symptoms started today and has been worse very quickly. We will start the patient on Flagyl for now. Also, Zithromax will be c ontinued. There is a risk for Clostridium difficile colitis, we will send stools, we will treat acco rdingly. 2. Sepsis. Patient has tachycardia with , likely secondary to enteritis, treatment as above. We will hydrate with caution. 3. Underlying dementia, patient will need supportive care as inpatient. 4. Acute encephalopathy. Patient has significant deterioration of mental status baseline for the main deutschchris is that he is able to do most of his activities of daily living. We will treat the underlying condition. Likely secondary to infection. 5. Deep venous thrombosis prophylaxis. RISK ASSESSMENT: Patient is at high risk for complications given acute encephalopathy.
[2017-10-18] MEDS: Gabapentin 300 MG CAP PO SCH ×2 (09:13→21:21)
[2017-10-18] MEDS: Ezetimibe 10 MG TAB PO SCH (09:14)
[2017-10-18] MEDS: Allopurinol 100 MG TAB PO SCH (09:15)
[2017-10-18] MEDS: Oxybutynin 5 MG TAB PO SCH (09:15)
[2017-10-18] MEDS ORDERED: cefTRIAXone\\ROCEPHIN 2 GM in Sodium Chloride 0.9% 100 ML IVPB SCH (11:00)
[2017-10-18] MEDS: Latanoprost 0.005% Ophth Soln 2.5 ml Bottle EA EYE SCH (12:06)
--- NOTE | 2017-10-18 13:07 | RAD ---
ACUTE ABDOMINAL SERIES: INDICATION: Abdominal pain . COMPARISON: Prior chest radiograph dated 01/02/[address] of the abdomen and pelvis dated 10/10/17. FINDINGS: There is stable moderate cardiomegaly. Pulmonary vasculature appears within normal limits. No airsp gely consolidation or pleural effusion is noted. There are vascular calcifications involving the aort ic arch. There is scattered degenerative change. The bowel gas pattern is nonspecific but without overt evidence of obstruction. No definite acute os seous abnormality is evident. IMPRESSION: 1. No definite acute abnormality demonstrated. 2. No definite free air demonstrated. POS: [facility]
--- NOTE | 2017-10-18 14:47 | CON ---
DATE OF CONSULTATION: 10/18/2017 HISTORY OF PRESENT ILLNESS: The patient is an 82-year-old male who was initially hospitali [facility] on 10/10/2017 and was diagnosed with Campylobacter gastroenteritis. He quickly improved and was sent home. Discharge medicines include azithromycin 500 mg for 3 days, allopurinol and amlodipine, a david others. He did well for approximately 2-3 days and then returned with fever and worsening diarr hea. He denies any abdominal pain. He has had no nausea, vomiting. PAST MEDICAL HISTORY: Significant for dementia, hypertension and osteoarthritis. PAST SURGICAL HISTORY: Includes prosthetic surgery. SOCIAL HISTORY: Does not smoke or drink. He lives with his children. MEDICATIONS: Medicines on discharge from recent hospitalization; azithromycin 500 mg p.o. daily for 3 days, allopurinol 100 mg p.o. daily, amlodipine 10 mg p.o. daily, aspirin 81 mg p.o. daily, citalop kemal 40 mg p.o. daily, clonidine 0.1 mg p.o. daily, gabapentin 300 mg p.o. b.i.d., hydrochlorothiazide 25 mg p.o. daily, lisinopril 40 mg p.o. daily, Meloxicam 50 mg p.o. daily, Myrbetriq 25 mg p.o. declan y, ezetimibe 10 mg p.o. daily. ALLERGIES: No known allergies. FAMILY HISTORY: Negative for GI or liver disease. REVIEW OF SYSTEMS: CONSTITUTIONAL: Positive for fever or chills. Negative for weight loss. EYES: No blurred vision or double vision. ENT: No sore throat or earaches. CARDIOVASCULAR: No chest pain or palpitations. PULMONARY: No shortness of breath, cough or wheezing. GASTROINTESTINAL: See above. : No hematuria or dysuria. MUSCULOSKELETAL: No joint pain or muscle weakness. SKIN: No rashes. NEUROLOGIC: No numbness or seizure activity. PHYSICAL EXAMINATION: GENERAL: Shows an elderly white male in no acute distress. VITAL SIGNS: Temperature 97.4, pulse 60, respiratory rate 16, blood pressure 117/65. HEENT: Unremarkable. NECK: Supple. CHEST: Clear. CARDIOVASCULAR: Regular rate and rhythm without murmurs or gallops. ABDOMEN: Soft, nontender, without organomegaly or masses. Bowel sounds are present and normoactive. RECTAL: Deferred. EXTREMITIES: Normal. NEUROLOGIC: Nonfocal. LABORATORY DATA AND IMAGING DATA: Shows a white blood cell count 24.1, hemoglobin 14.1, hematocrit o f 41.6, has 33% bands. Chemistries show BUN 27, AST of 106, ALT of 97. Three view of the abdomen wa s normal. Stool lactoferrin was positive. Stool for Campylobacter was negative. Stool for C. diffi cile shows antigen positive. Stool for occult blood was negative. ASSESSMENT: 1. Clostridium difficile colitis. 2. Recent diagnosis of Campylobacter enterocolitis. RECOMMENDATIONS: 1. Discontinue other unnecessary antibiotics. 2. Begin vancomycin 125 mg p.o. q.6 hours.
[2017-10-18] MEDS: Vancomycin HCl 25 MG/ML Oral PO SCH ×2 (16:06→21:22)
[2017-10-18] MEDS ORDERED: Saccharomyces boulardii 250 MG CAP PO SCH (21:00)
[2017-10-18] MEDS: Amlodipine 5 MG TAB PO SCH (21:21)
[2017-10-18] MEDS: Famotidine/PF 20 mg/2ml Vial SLOW IVP SCH (21:21)
[2017-10-18] MEDS: Saccharomyces boulardii 250 MG CAP PO SCH (21:22)
--- NOTE | 2017-10-18 22:25 | PDOC.PN ---
- Subjective Encounter Start Date: 10/18/17 Encounter Start Time: 14:00 Patient seen and examined for colitis. Diarrhea +. No new complaints. No overnight events - Objective Resuscitation Status: Resuscitation Status DNR:Do Not Resuscitate MAR Reviewed: Yes Vital Signs & Weight: Vital Signs (12 hours) Temp Pulse Resp BP BP Pulse Ox 10/18/17 21:21 58 L 105/60 10/18/17 20:00 98.2 F 58 L 20 92/49 L 94 L Weight Weight 235 lb 14.314 oz I&O: 10/17/17 10/18/17 10/19/17 06:59 06:59 06:59 Intake Total 500 360 Output Total 100 Balance 400 360 Result Diagrams: 10/19/17 03:27 10/19/17 03:27 Radiology Reviewed by me: Yes (KUB - neg) Phys Exam - Physical Examination Constitutional: NAD Respiratory: no wheezing, no rhonchi Cardiovascular: RRR, no rub Gastrointestinal: soft, non-tender, positive bowel sounds Musculoskeletal: no edema Dx/Plan - Plan DVT proph w/heparin, DVT proph w/SCDs IMPRESSION: 1. Sepsis due to Acute C diff colitis 2. Recent Campylobacter gastroenteritis 3. HTN 4. HLD 5. Essential tremors / Former smoker / CKD 2 / Abn LFTs prob due to sepsis PLAN: DC Azithromycin Start PO Vancomycin with Florastor Cont Clonidine Change Amlodipine to 5 mg BID AM labs Cont current meds as below Review of Systems - Review of Systems Respiratory: negative: Cough, Dry, Shortness of Breath, Hemoptysis, SOB with Excertion, Pleuritic Pain, Sputum, Wheezing Cardiovascular: negative: chest pain, palpitations, orthopnea, paroxysmal nocturnal dyspnea, edema, light headedness, other - Medications/Allergies Allergies/Adverse Reactions: Allergies Allergy/AdvReac Type Severity Reaction Status Date / Time No Known Drug Allergies Allergy Verified 10/10/17 03:16 Medications: Current Medications Acetaminophen (Tylenol) 650 mg PO Q4H PRN PRN Reason: Headache/Fever or Pain Last Admin: 10/18/17 01:32 Dose: 650 mg Hydrocodone Bitart/Acetaminophen ([place] 5/325) 1 tab PO Q6H PRN PRN Reason: Moderate Pain (4-6) Allopurinol (Zyloprim) 100 mg PO DAILY [facility] Last Admin: 10/18/17 09:15 Dose: 100 mg Amlodipine Besylate (Norvasc) 5 mg PO BID [facility] Last Admin: 10/18/17 21:21 Dose: Not Given Clonidine (Catapres) 0.1 mg PO DAILY [facility] Ezetimibe (Zetia) 10 mg PO DAILY [facility] Last Admin: 10/18/17 09:14 Dose: 10 mg Famotidine (Pepcid) 20 mg SLOW IVP BID [facility] Last Admin: 10/18/17 21:21 Dose: 20 mg Gabapentin (Neurontin) 300 mg PO BID [facility] Last Admin: 10/18/17 21:21 Dose: 300 mg Heparin Sodium (Porcine) (Heparin) 5,000 units SC Q8HR [facility] Metronidazole 500 mg/ Device 100 mls @ 100 mls/hr IVPB Q8HR [facility] Stop: 10/21/17 09:00 Last Admin: 10/18/17 21:23 Dose: 100 mls Sodium Chloride (Normal Saline 0.9%) 1,000 mls @ 75 mls/hr IV .[id number] [facility] Last Admin: 10/18/17 21:23 Dose: 1,000 mls Latanoprost (Xalatan 0.005% Oph Soln) 1 drop EA EYE DAILY [facility] Last Admin: 10/18/17 12:06 Dose: Not Given Mirabegron (Myrbetriq Er) 25 mg PO DAILY [facility] Last Admin: 10/18/17 09:13 Dose: 25 mg Oxybutynin Chloride (Ditropan) 5 mg PO DAILY [facility] Last Admin: 10/18/17 09:15 Dose: 5 mg Saccharomyces Boulardii (Florastor) 250 mg PO HS [facility] Last Admin: 10/18/17 21:22 Dose: 250 mg Vancomycin HCl (First Vancomycin) 125 mg PO 0300,0900,1500,2100 [facility] Last Admin: 10/18/17 21:22 Dose: 125 mg
[2017-10-19] MEDS: Vancomycin HCl 25 MG/ML Oral PO SCH ×4 (02:05→20:51)
[2017-10-19 04:52] LABS: #Eosinphils 0.2 thou/uL (0.0-0.7); #Lymphocytes 1.6 thou/uL (1.20-3.40); #Neutrophils 15.6 thou/uL (1.40-6.50); %Basophils 0.2 % (0.0-1.0); %Eosinophils 1.1 % (0.0-10.0); %Lymphocytes 8.8 % (21.0-51.0); %Monocytes 5.4 % (0.0-10.0); %Neutrophils 84.6 % (42.0-75.0); Hemoglobin 12.5 g/dL (14.0-18.0); Mean Corpuscular HGB CONC 34.7 g/dL (32.0-36.0); Mean Corpuscular Hemoglobin 34.7 pg (27.0-31.0); Mean Corpuscular Volume 99.8 fL (78.0-98.0); Mean Platelet Volume 9.3 fL (7.4-10.4); Platelet Count 165 thou/uL (130-400); RBC Distribution Width 12.7 % (11.5-14.5); White Blood Cell (WBC) Count 18.5 thou/uL (4.8-10.8)
[2017-10-19 05:28] LABS: ALT (SGPT) 56 U/L (8-55); AST (SGOT) 33 U/L (5-34); Alkaline Phosphatase 115 U/L (40-150); Anion Gap 13 mmol/L (10-20); BUN (Urea Nitrogen) 31 mg/dL (8.4-25.7); Bilirubin, Total 0.5 mg/dL (0.2-1.2); Calc. Creatinine Clearance 80 mL/min (70-130); Calcium 8.8 mg/dL (7.8-10.44); Carbon Dioxide 22 mmol/L (23-31); Chloride 109 mmol/L (98-107); Estimated GFR-MDRD 68; Globulin 2.3 g/dL (2.4-3.5); Glucose 86 mg/dL (83-110); Phosphorus 2.8 mg/dL (2.3-4.7); Protein, Total 5.3 g/dL (5.8-8.1); Sodium 140 mmol/L (136-145)
[2017-10-19] MEDS: metroNIDAZOLE 500 MG in Premix Bag 1 BAG IVPB SCH ×3 (05:43→20:52)
[2017-10-19] MEDS: Heparin 5,000 UNITS/ML VIAL SC SCH ×3 (05:44→20:52)
[2017-10-19] MEDS ORDERED: Saccharomyces boulardii 250 MG CAP PO SCH (09:00)
[2017-10-19] MEDS: Gabapentin 300 MG CAP PO SCH ×2 (09:10→20:50)
[2017-10-19] MEDS: cloNIDine 0.1 MG TAB PO SCH (09:10)
[2017-10-19] MEDS: Oxybutynin 5 MG TAB PO SCH (09:10)
[2017-10-19] MEDS: Allopurinol 100 MG TAB PO SCH (09:10)
[2017-10-19] MEDS: Amlodipine 5 MG TAB PO SCH (09:10)
[2017-10-19] MEDS: Ezetimibe 10 MG TAB PO SCH (09:10)
[2017-10-19] MEDS: Latanoprost 0.005% Ophth Soln 2.5 ml Bottle EA EYE SCH (09:11)
[2017-10-19] MEDS: Famotidine/PF 20 mg/2ml Vial SLOW IVP SCH ×2 (10:07→20:49)
[2017-10-19] MEDS ORDERED: hydrALAZINE 20 MG/ML VIAL SLOW IVP PRN (10:43)
--- NOTE | 2017-10-19 14:41 | PRG ---
DATE OF SERVICE: 10/19/2017 SUBJECTIVE: The patient feeling well. He has had 1 bowel movement today which was formed. He is ab le to control it. He is tolerating diet well. OBJECTIVE: VITAL SIGNS: Temperature 98.1, pulse 61, respiratory rate 18, blood pressure 105/63. CHEST: Clear. CARDIOVASCULAR: Regular rate and rhythm. ABDOMEN: Soft, nontender, without organomegaly or masses. LABORATORY DATA: Shows a white blood cell count of 18.5, hemoglobin 12.5, hematocrit 35.9. Chemistr ies significant for CO2 of 22, BUN 31, ALT of 56, albumin 3.0. ASSESSMENT: 1. Clostridium difficile diarrhea. 2. History of Campylobacter enterocolitis. RECOMMENDATIONS: 1. Continue vancomycin 125 mg p.o. q.6 hours for 2 weeks. 2. Continue Florastor for 4 weeks. 3. No antidiarrheals. 4. Stable for discharge from GI standpoint. 5. We will sign off.
[2017-10-19] MEDS: Sodium Chloride 0.9% 1,000 ML IV SCH ×2 (17:51→20:52)
[2017-10-19] MEDS: Saccharomyces boulardii 250 MG CAP PO SCH (20:51)
--- NOTE | 2017-10-19 23:49 | PDOC.PN ---
- Subjective Encounter Start Date: 10/19/17 Encounter Start Time: 11:30 Patient seen and examined for C diff colitis. No new complaints. No overnight events - Objective Resuscitation Status: Resuscitation Status DNR:Do Not Resuscitate MAR Reviewed: Yes Vital Signs & Weight: Vital Signs (12 hours) Temp Pulse Resp BP Pulse Ox 10/19/17 20:00 98.0 F 56 L 16 94 L 10/19/17 19:54 98.0 F 56 L 16 155/67 H 94 L Weight Weight 235 lb 14.314 oz I&O: 10/18/17 10/19/17 10/20/17 06:59 06:59 06:59 Intake Total 500 1081 1348 Output Total 100 5 Balance 400 1076 1348 Result Diagrams: 10/20/17 04:08 10/20/17 04:08 Phys Exam - Physical Examination Constitutional: NAD Respiratory: no wheezing, no rhonchi Cardiovascular: RRR, no rub Gastrointestinal: soft, non-tender, positive bowel sounds Musculoskeletal: no edema Neurological: moves all 4 limbs Dx/Plan - Plan DVT proph w/SCDs IMPRESSION: 1. Sepsis due to Acute C diff colitis 2. Recent Campylobacter gastroenteritis 3. HTN 4. HLD 5. Essential tremors / Former smoker / CKD 2 / Abn LFTs prob due to sepsis PLAN: Cont IV Flagyl Cont PO Vancomycin/Florastor Cont Clonidine daily with Amlodipine AM labs Cont current meds as below DC planning - [facility] Review of Systems - Review of Systems Respiratory: negative: Cough, Dry, Shortness of Breath, Hemoptysis, SOB with Excertion, Pleuritic Pain, Sputum, Wheezing Cardiovascular: negative: chest pain, palpitations, orthopnea, paroxysmal nocturnal dyspnea, edema, light headedness, other - Medications/Allergies Allergies/Adverse Reactions: Allergies Allergy/AdvReac Type Severity Reaction Status Date / Time No Known Drug Allergies Allergy Verified 10/10/17 03:16 Medications: Current Medications Acetaminophen (Tylenol) 650 mg PO Q4H PRN PRN Reason: Headache/Fever or Pain Last Admin: 10/18/17 01:32 Dose: 650 mg Hydrocodone Bitart/Acetaminophen ([place] 5/325) 1 tab PO Q6H PRN PRN Reason: Moderate Pain (4-6) Last Admin: 10/19/17 20:54 Dose: 1 tab Allopurinol (Zyloprim) 100 mg PO DAILY [facility] Last Admin: 10/19/17 09:10 Dose: 100 mg Clonidine (Catapres) 0.1 mg PO DAILY [facility] Last Admin: 10/19/17 09:10 Dose: Not Given Ezetimibe (Zetia) 10 mg PO DAILY [facility] Last Admin: 10/19/17 09:10 Dose: 10 mg Famotidine (Pepcid) 20 mg SLOW IVP BID [facility] Last Admin: 10/19/17 20:49 Dose: 20 mg Gabapentin (Neurontin) 300 mg PO BID [facility] Last Admin: 10/19/17 20:50 Dose: 300 mg Heparin Sodium (Porcine) (Heparin) 5,000 units SC Q8HR [facility] Last Admin: 10/19/17 20:52 Dose: 5,000 units Hydralazine HCl (Apresoline) 10 mg SLOW IVP Q4H PRN PRN Reason: SBP Greater Than 180 Metronidazole 500 mg/ Device 100 mls @ 100 mls/hr IVPB Q8HR [facility] Stop: 10/21/17 09:00 Last Admin: 10/19/17 20:52 Dose: 100 mls Sodium Chloride (Normal Saline 0.9%) 1,000 mls @ 75 mls/hr IV .[id number] [facility] Last Admin: 10/19/17 20:52 Dose: 1,000 mls Latanoprost (Xalatan 0.005% [facility]) 1 drop EA EYE DAILY [facility] Last Admin: 10/19/17 09:11 Dose: 1 drop Mirabegron (Myrbetriq Er) 25 mg PO DAILY [facility] Last Admin: 10/19/17 09:11 Dose: 25 mg Oxybutynin Chloride (Ditropan) 5 mg PO DAILY [facility] Last Admin: 10/19/17 09:10 Dose: 5 mg Saccharomyces Boulardii (Florastor) 250 mg PO HS [facility] Last Admin: 10/19/17 20:51 Dose: 250 mg Vancomycin HCl (First Vancomycin) 125 mg PO 0300,0900,1500,2100 [facility] Last Admin: 10/19/17 20:51 Dose: 125 mg
[2017-10-20] MEDS ORDERED: diphenhydrAMINE 50 MG/ML VIAL IVP PRN (00:04)
[2017-10-20] MEDS ORDERED: Lorazepam 2 MG/ML VIAL SLOW IVP SCH (00:15)
[2017-10-20] MEDS: Vancomycin HCl 25 MG/ML Oral PO SCH ×4 (02:02→20:09)
[2017-10-20 04:38] LABS: #Basophils 0.1 thou/uL (0.0-0.2); #Eosinphils 0.4 thou/uL (0.0-0.7); #Lymphocytes 1.7 thou/uL (1.20-3.40); #Monocytes 0.6 thou/uL (0.11-0.59); #Neutrophils 8.7 thou/uL (1.40-6.50); %Basophils 0.6 % (0.0-1.0); %Eosinophils 3.2 % (0.0-10.0); %Lymphocytes 14.7 % (21.0-51.0); %Monocytes 5.2 % (0.0-10.0); %Neutrophils 76.3 % (42.0-75.0); Hemoglobin 12.5 g/dL (14.0-18.0); Mean Corpuscular HGB CONC 34.2 g/dL (32.0-36.0); Mean Corpuscular Hemoglobin 34.4 pg (27.0-31.0); Mean Platelet Volume 9.2 fL (7.4-10.4); Platelet Count 172 thou/uL (130-400); RBC Distribution Width 12.8 % (11.5-14.5); Red Blood Cell (RBC) Count 3.63 mill/uL (4.70-6.10); White Blood Cell (WBC) Count 11.3 thou/uL (4.8-10.8)
[2017-10-20 04:56] LABS: Anion Gap 10 mmol/L (10-20); BUN (Urea Nitrogen) 20 mg/dL (8.4-25.7); Calc. Creatinine Clearance 92 mL/min (70-130); Calcium 8.7 mg/dL (7.8-10.44); Carbon Dioxide 25 mmol/L (23-31); Chloride 112 mmol/L (98-107); Estimated GFR-MDRD 80; Glucose 104 mg/dL (83-110); Potassium 3.7 mmol/L (3.5-5.1); Sodium 143 mmol/L (136-145)
[2017-10-20] MEDS: metroNIDAZOLE 500 MG in Premix Bag 1 BAG IVPB SCH ×3 (05:52→20:21)
[2017-10-20] MEDS: Heparin 5,000 UNITS/ML VIAL SC SCH ×3 (05:52→20:10)
[2017-10-20] MEDS: Ezetimibe 10 MG TAB PO SCH (08:39)
[2017-10-20] MEDS: cloNIDine 0.1 MG TAB PO SCH (08:39)
[2017-10-20] MEDS: Allopurinol 100 MG TAB PO SCH (08:39)
[2017-10-20] MEDS: Gabapentin 300 MG CAP PO SCH ×2 (08:40→20:09)
[2017-10-20] MEDS: Latanoprost 0.005% Ophth Soln 2.5 ml Bottle EA EYE SCH (08:40)
[2017-10-20] MEDS: Famotidine/PF 20 mg/2ml Vial SLOW IVP SCH (08:40)
[2017-10-20] MEDS: Oxybutynin 5 MG TAB PO SCH (09:17)
[2017-10-20] MEDS: Sodium Chloride 0.9% 1,000 ML IV SCH (18:44)
[2017-10-20] MEDS ORDERED: Sodium Chloride 0.9% 1,000 ML IV SCH (18:49)
--- NOTE | 2017-10-20 18:51 | PDOC.PN ---
- Subjective Encounter Start Date: 10/20/17 Encounter Start Time: 16:00 Patient seen and examined for C diff colitis. 2 episodes of soft stool. Intermittent confusion. Overnight events noted. - Objective Resuscitation Status: Resuscitation Status DNR:Do Not Resuscitate MAR Reviewed: Yes Vital Signs & Weight: Vital Signs (12 hours) Temp Pulse Resp BP BP Pulse Ox 10/20/17 08:39 145/69 H 10/20/17 08:00 98.0 F 63 18 95 10/20/17 07:17 98.0 F 63 18 145/69 H 95 Weight Weight 235 lb 14.314 oz I&O: 10/19/17 10/20/17 10/21/17 06:59 06:59 06:59 Intake Total 1081 2124 1332 Output Total 5 Balance 1076 2124 1332 Result Diagrams: 10/20/17 04:08 10/20/17 04:08 Phys Exam - Physical Examination Constitutional: NAD Respiratory: no wheezing, no rhonchi Cardiovascular: RRR, no rub Gastrointestinal: soft, non-tender, no distention, positive bowel sounds Musculoskeletal: no edema Neurological: moves all 4 limbs Dx/Plan - Plan DVT proph w/SCDs IMPRESSION: 1. Sepsis due to Acute C diff colitis - on PO Vancomycin and IV Flagyl 2. Delirium/Toxic Metabolic Encephalopathy - multifactorial 3. HTN 4. HLD 5. Essential tremors / Former smoker / CKD 2 / Abn LFTs prob due to sepsis/ Recent Campylobacter gastroenteritis - Completed [facility] PLAN: Cont IV Flagyl with PO Vancomycin/Florastor Cont current meds as below Family will stay with patient tonight Repeat Cdiff per family request DC planning - [facility] Review of Systems - Review of Systems Respiratory: negative: Cough, Dry, Shortness of Breath, Hemoptysis, SOB with Excertion, Pleuritic Pain, Sputum, Wheezing Cardiovascular: negative: chest pain, palpitations, orthopnea, paroxysmal nocturnal dyspnea, edema, light headedness, other - Medications/Allergies Allergies/Adverse Reactions: Allergies Allergy/AdvReac Type Severity Reaction Status Date / Time No Known Drug Allergies Allergy Verified 10/10/17 03:16 Medications: Current Medications Acetaminophen (Tylenol) 650 mg PO Q4H PRN PRN Reason: Headache/Fever or Pain Last Admin: 10/18/17 01:32 Dose: 650 mg Hydrocodone Bitart/Acetaminophen ([place] 5/325) 1 tab PO Q6H PRN PRN Reason: Moderate Pain (4-6) Last Admin: 10/19/17 20:54 Dose: 1 tab Allopurinol (Zyloprim) 100 mg PO DAILY [facility] Last Admin: 10/20/17 08:39 Dose: 100 mg Clonidine (Catapres) 0.1 mg PO DAILY [facility] Last Admin: 10/20/17 08:39 Dose: 0.1 mg Ezetimibe (Zetia) 10 mg PO DAILY [facility] Last Admin: 10/20/17 08:39 Dose: 10 mg Famotidine (Pepcid) 20 mg PO BID [facility] Gabapentin (Neurontin) 300 mg PO BID [facility] Last Admin: 10/20/17 08:40 Dose: 300 mg Heparin Sodium (Porcine) (Heparin) 5,000 units SC Q8HR [facility] Last Admin: 10/20/17 14:00 Dose: 5,000 units Hydralazine HCl (Apresoline) 10 mg SLOW IVP Q4H PRN PRN Reason: SBP Greater Than 180 Metronidazole 500 mg/ Device 100 mls @ 100 mls/hr IVPB Q8HR [facility] Stop: 10/21/17 09:00 Last Admin: 10/20/17 14:00 Dose: 100 mls Sodium Chloride (Normal Saline 0.9%) 1,000 mls @ 50 mls/hr IV .Q20H [facility] Latanoprost (Xalatan 0.005% [facility]) 1 drop EA EYE DAILY [facility] Last Admin: 10/20/17 08:40 Dose: 1 drop Mirabegron (Myrbetriq Er) 25 mg PO DAILY [facility] Last Admin: 10/20/17 08:40 Dose: 25 mg Oxybutynin Chloride (Ditropan) 5 mg PO DAILY [facility] Last Admin: 10/20/17 09:17 Dose: 5 mg Saccharomyces Boulardii (Florastor) 250 mg PO HS [facility] Last Admin: 10/19/17 20:51 Dose: 250 mg Vancomycin HCl (First Vancomycin) 125 mg PO 0300,0900,1500,2100 [facility] Last Admin: 10/20/17 15:40 Dose: 125 mg
[2017-10-20] MEDS: Famotidine 20 MG TAB PO SCH (20:08)
[2017-10-20] MEDS: Saccharomyces boulardii 250 MG CAP PO SCH (20:09)
[2017-10-20] MEDS: Acetaminophen 325 MG TAB PO PRN (20:10)
[2017-10-21] MEDS: Vancomycin HCl 25 MG/ML Oral PO SCH ×3 (01:37→14:14)
[2017-10-21] MEDS: metroNIDAZOLE 500 MG in Premix Bag 1 BAG IVPB SCH (05:25)
[2017-10-21] MEDS: Heparin 5,000 UNITS/ML VIAL SC SCH ×2 (05:26→14:14)
[2017-10-21] MEDS: Latanoprost 0.005% Ophth Soln 2.5 ml Bottle EA EYE SCH (08:48)
[2017-10-21] MEDS: Gabapentin 300 MG CAP PO SCH (08:48)
[2017-10-21] MEDS: Ezetimibe 10 MG TAB PO SCH (08:48)
[2017-10-21] MEDS: Famotidine 20 MG TAB PO SCH (08:48)
[2017-10-21] MEDS: Oxybutynin 5 MG TAB PO SCH (08:48)
[2017-10-21] MEDS: Allopurinol 100 MG TAB PO SCH (08:48)
[2017-10-21] MEDS: cloNIDine 0.1 MG TAB PO SCH (08:48)
[2017-10-21 15:27] VITALS: BP 168/68; TEMP 98.1
--- NOTE | 2017-10-22 18:12 | DIS ---
DATE OF DISCHARGE: 10/21/2017 DISCHARGE DISPOSITION: Home health care through [facility]. The patient was seen and examined on the day of discharge. Denies any new complaints. DISCHARGE MEDICATIONS: Vancomycin 125 mg q.i.d. for next 12 days. ALLERGIES: No known drug allergies. BRIEF HOSPITAL COURSE: The patient is an 82-year-old male with recent Campylobacter gastroenteritis on azithromycin, presented to the hospital with worsening confusion and diarrhea. His workup was con sistent with C. diff colitis. Acute abdominal series was negative for obstruction. All other stool workup was negative except for C. diff, positive for antigen and toxin. He showed good improvement w ith oral vancomycin with IV Flagyl. He will be discharged home on oral vancomycin. He appears stabl e for discharge. FINAL DIAGNOSES: 1. Sepsis secondary to acute Clostridium difficile colitis. 2. Delirium/toxic metabolic encephalopathy. 3. Hypertension. 4. Hyperlipidemia. 5. Essential tremors. 6. Former smoker. 7. Chronic kidney disease stage 2. 8. Abnormal liver function tests, probably secondary to sepsis. 9. Recent Campylobacter gastroenteritis. 10. Body mass index 33.8. SIGNIFICANT LABORATORY DATA: WBC on admission 18.2, at discharge 11.3. BUN 31, creatinine 1.04. AST 106, at discharge 33, ALT 97, at discharge 56.
== END 2017-10-21 15:27 | disposition home health service (06) | DRG 871 ==
LOC: ERS 15:30 → T4-B 20:45
PROVIDERS: ADMIT Hospitalist; ATTEND Hospitalist
DX: A41.9 Sepsis, unspecified organism (principal); G93.40 Encephalopathy, unspecified; A04.72 Enterocolitis due to Clostridium difficile, not specified as recurrent; I12.9 Hypertensive chronic kidney disease with stage 1 through stage 4 chronic kidney disease, or unspecified chronic kidney disease; N18.2 Chronic kidney disease, stage 2 (mild); R79.89 Other specified abnormal findings of blood chemistry; F03.90 Unspecified dementia, unspecified severity, without behavioral disturbance, psychotic disturbance, mood disturbance, and anxiety; E78.5 Hyperlipidemia, unspecified; M10.9 Gout, unspecified; M19.90 Unspecified osteoarthritis, unspecified site; G25.0 Essential tremor; F41.9 Anxiety disorder, unspecified; Z79.2 Long term (current) use of antibiotics; Z87.891 Personal history of nicotine dependence
CPT/HCPCS: 36415; 74022; 80048; 80053; 81003; 81015; 82274; 83605; 83630; 83735; 84100; 85025; 87045; 87046; 87086; 87324; 87328; 87329; 87449; 87493; 87899; 94760; 96361; 96365; G8978-GP-CJ; G8979-GP-CI; G8980-GP-CI; G8987-GO-CJ; G8988-GO-CI; J0696; J1200; J1644; J1650; J2060; J7050; S0028

== ENCOUNTER 2017-11-07 14:02 | Inpatient (IN) | payer MEDICARE, OTHER ==
--- NOTE | 2017-11-07 14:52 | RAD ---
PORTABLE CHEST: HISTORY: . Mental status change. FINDINGS: The heart is mildly enlarged. There is mild vascular congestion. Prominent aortic calcification. I cannot exclude small effusions. No focal infiltrate or consolidation apparent. IMPRESSION: Cardiomegaly and mild vascular congestion. POS: [facility]
[2017-11-07 15:21] LABS: #Eosinphils 0.1 thou/uL (0.0-0.7); #Lymphocytes 0.9 thou/uL (1.20-3.40); #Monocytes 1.2 thou/uL (0.11-0.59); #Neutrophils 14.4 thou/uL (1.40-6.50); %Basophils 0.2 % (0.0-1.0); %Eosinophils 0.4 % (0.0-10.0); %Lymphocytes 5.4 % (21.0-51.0); %Monocytes 7.3 % (0.0-10.0); %Neutrophils 86.7 % (42.0-75.0); Hemoglobin 14.8 g/dL (14.0-18.0); Mean Corpuscular HGB CONC 33.9 g/dL (32.0-36.0); Mean Corpuscular Hemoglobin 33.6 pg (27.0-31.0); Mean Corpuscular Volume 99.1 fL (78.0-98.0); Mean Platelet Volume 9.8 fL (7.4-10.4); Platelet Count 180 thou/uL (130-400); RBC Distribution Width 12.9 % (11.5-14.5); Red Blood Cell (RBC) Count 4.41 mill/uL (4.70-6.10); White Blood Cell (WBC) Count 16.6 thou/uL (4.8-10.8)
[2017-11-07] MEDS ORDERED: Acetaminophen 500 MG TAB ONE (15:26)
[2017-11-07 15:40] LABS: ALT (SGPT) 16 U/L (8-55); AST (SGOT) 16 U/L (5-34); Alkaline Phosphatase 78 U/L (40-150); Anion Gap 13 mmol/L (10-20); BUN (Urea Nitrogen) 25 mg/dL (8.4-25.7); Bilirubin, Total 0.9 mg/dL (0.2-1.2); Calc. Creatinine Clearance 0 mL/min (70-130); Calcium 9.8 mg/dL (7.8-10.44); Carbon Dioxide 26 mmol/L (23-31); Chloride 104 mmol/L (98-107); Estimated GFR-MDRD 46; Globulin 2.7 g/dL (2.4-3.5); Glucose 112 mg/dL (83-110); Potassium 4.4 mmol/L (3.5-5.1); Protein, Total 6.7 g/dL (5.8-8.1); Sodium 139 mmol/L (136-145)
[2017-11-07] MEDS ORDERED: Ketorolac Tromethamine 30 MG/ML VIAL ONE (16:47)
[2017-11-07 17:32] VITALS: BMI 32.8
[2017-11-07] MEDS ORDERED: Acetaminophen 650 MG Suppository PR PRN (17:50)
--- NOTE | 2017-11-07 17:51 | HP ---
DATE OF ADMISSION: 11/07/2017 PRIMARY CARE PROVIDER: Compa Concepcion M.D. CHIEF COMPLAINT: Altered mental status. HISTORY OF PRESENT ILLNESS: Mr. Rubio is a pleasant 82-year-old gentleman who was seen at [facility] on 11/07/2017. He was hospitalized at this facility from 10/18 to 10/22 of this year, during which he was treated for Clostridium difficile colitis. He finished treatment 5 days ago. He was reportedly doing well at home, almost close to 99% of his baseline 2 days ago. Today morning, he had a temperature of 101 degrees Fahrenheit. He was also confused. He was also reportedly sneezing. He did not have any cough. 911 was called. Before the ambulance came, the patient vomited. It is unclear if he aspirated. He spit out foam like fluid. He was then brought to the emergency room for further management. The patient himself is unable to provide any significant history and review of systems could not be completed. The patient's son reports that his last bowel movement was yesterday morning. It is unclear whether he had any bowel movements today. REVIEW OF SYSTEMS: Could not be completed secondary to the patient's altered mental status. PAST MEDICAL HISTORY: Dementia, essential tremor, hypertension, dyslipidemia, Clostridium difficile colitis. PAST SURGICAL HISTORY: Prostatectomy. SOCIAL HISTORY: No history of tobacco use, alcohol use or recreational drug use at this point. ALLERGIES: No known drug allergies. CURRENT MEDICATIONS: These need to be clarified, but the patient appears to be on clonidine 0.1 mg daily, Myrbetriq 25 mg daily, hydrochlorothiazide 25 mg daily, lisinopril 40 mg daily, allopurinol 100 mg daily, amlodipine 10 mg daily , aspirin 81 mg daily, Celexa 40 mg daily, gabapentin 300 mg 2 times a day, latanoprost 1 drop to each eye daily and multivitamins 1 tablet daily. FAMILY HISTORY: Could not be obtained. CODE STATUS: I discussed his code status with his son, who is his medical power of seismograph helper. The patient is full code. PHYSICAL EXAMINATION: GENERAL: Mr. Rubio is sleepy, but arousable, not in acute distress. He is obese. VITAL SIGNS: Blood pressure is 144/66, pulse 86, respiratory rate 22 and oxygen saturation 97% on room air. T-max in the emergency room was 103 degrees Fahrenheit. EYES: No scleral icterus. No conjunctival pallor. ENT: Dry mucosal membranes. No oropharyngeal erythema or exudates. NECK: Supple, nontender, trachea is midline. RESPIRATORY: Accessory muscles of breathing are mildly active. Chest wall movements are symmetric bilaterally. Lung examination reveals left basal crackles. CARDIOVASCULAR: S1 and S2 are heard, regular. Peripheral pulses palpable. No carotid bruit, no pericardial rub. ABDOMEN: Soft, distended, resonant, no guarding or rigidity, bowel sounds are heard. NEUROLOGIC: Full neurologic examination not possible secondary to the patient' s noncooperation. There is no facial droop. Deep tendon reflexes are 2+. MUSCULOSKELETAL: The patient is moving all four extremities. SKIN: No rashes or subcutaneous nodules. LYMPHATIC: No cervical lymphadenopathy. PSYCHIATRIC: Unable to assess mood, affect or orientation to person, place or time. LABORATORY DATA: Mr. Rubio's labs and investigations were reviewed. I reviewed his electrocardiogram, which shows normal sinus rhythm. No ST changes to suggest an acute coronary syndrome. I also reviewed his portable chest x-ray , which is suggestive of a left lower lobe infiltrate. He has leukocytosis with 16,600 white cells, of which 86.7% are neutrophils, normal hemoglobin, normal platelet count, normal electrolytes, elevated creatinine of 1.45, creatinine was normal on 10/20/2017, normal liver profile, normal lactic acid and mildly elevated BNP of 214.2. ASSESSMENT AND PLAN: Mr. Rubio is a pleasant 82-year-old gentleman who was seen at [facility] on 11/07/2017. His problem list includes: 1. Severe sepsis: Mr. Rubio is presenting with sepsis, likely source of infection respiratory. He will be admitted to the hospital for further management including intravenous fluids and antibiotics. 2. Pneumonia: It is possible that he had an aspiration event, especially given the history of vomiting. It is also possible that he has healthcare associated pneumonia. The patient has received Zosyn, levofloxacin and vancomycin in the emergency room, which I will continue. We will also send out urinalysis and urine culture to rule out other sources of infection. 3. Acute kidney injury: Likely secondary to sepsis. Provide the patient with intravenous hydration and recheck creatinine and electrolytes. 4. Acute encephalopathy: Likely secondary to severe sepsis. Monitor mental status. 5. History of Clostridium difficile diarrhea. If the patient develops diarrhea , check stool for Clostridium difficile. 6. Dyslipidemia: Continue home medications once clarified. 7. Hypertension: Resume home medications after clarification, monitor vital signs and titrate antihypertensives as needed. Many thanks for allowing me to participate in your patient's care. Please feel free to contact me with any questions or concerns. LEVEL OF RISK: High. LEVEL OF COMPLEXITY: High. MTDD
[2017-11-07] MEDS ORDERED: Vancomycin HCl 1 GM in Premix Bag 1 BAG IVPB SCH (18:00)
--- NOTE | 2017-11-07 18:24 | RAD ---
SUPINE AND LEFT LATERAL DECUBITUS IMAGES OF THE ABDOMEN (FOUR TOTAL IMAGES) 11/07/17 INDICATION: Abdominal distention. COMPARISON: Prior acute abdominal series dated 10/18/17. FINDINGS: Bowel gas pattern is nonspecific. There is some air fluid level seen within the colon which can be se en with colitis and mild diarrheal states. There is a mild amount of retained stool present within th e region of the splenic flexure. There is a mild amount of retained stool within the rectum. The lung bases are clear. No acute osseous abnormality is evident. IMPRESSION: 1. Small amount of air fluid level seen within the left hemicolon can be seen with diarrheal sta rush. 2. Lung bases are clear. 3. No suspicious calcifications. 4. Scattered degenerative and osteoarthritic change. POS: [facility]
[2017-11-07] MEDS: Sodium Chloride 0.9% 1,000 ML IV SCH (18:25)
[2017-11-07] MEDS: Piperacillin/Tazobactam 3.375 GM in Sodium Chloride 0.9% 100 ML IVPB SCH (20:15)
[2017-11-07] MEDS: Acetaminophen 325 MG TAB PO PRN (20:15)
[2017-11-07] MEDS: diphenhydrAMINE 25 MG CAP PO PRN ×2 (22:13→23:51)
[2017-11-08] MEDS: Piperacillin/Tazobactam 3.375 GM in Sodium Chloride 0.9% 100 ML IVPB SCH ×2 (02:20→07:59)
[2017-11-08] MEDS: Acetaminophen 325 MG TAB PO PRN ×3 (02:20→16:43)
[2017-11-08 05:08] LABS: Anion Gap 15 mmol/L (10-20); BUN (Urea Nitrogen) 35 mg/dL (8.4-25.7); Calc. Creatinine Clearance 45 mL/min (70-130); Calcium 8.6 mg/dL (7.8-10.44); Carbon Dioxide 22 mmol/L (23-31); Chloride 106 mmol/L (98-107); Estimated GFR-MDRD 36; Glucose 142 mg/dL (83-110); Potassium 4.7 mmol/L (3.5-5.1); Sodium 138 mmol/L (136-145)
[2017-11-08 06:09] LABS: Band 27 % (5-11); Hypochromia SLIGHT = 6-15 cells (100X) (0-5/hpf); Lymphocytes 7 % (21-51); MDiff Complete? YES; Mean Corpuscular HGB CONC 34.3 g/dL (32.0-36.0); Mean Corpuscular Hemoglobin 34.3 pg (27.0-31.0); Mean Corpuscular Volume 99.9 fL (78.0-98.0); Monocytes 14 % (0-10); Neutrophil 52 % (42-75); PLT Morphology Comment Appears Adequate; Platelet Count 144 thou/uL (130-400); White Blood Cell (WBC) Count 10.8 thou/uL (4.8-10.8)
[2017-11-08 06:53] LABS: Bilirubin Negative (Negative); Blood, Urine Negative (Negative); Clarity CLEAR (Clear); Glucose, Urine (Dipstick) Negative (Negative); Leukocyte Negative (Negative); Nitrite Negative (Negative); Protein, Urine (Dipstick) Trace mg/dL (Neg-Trace); Specific Gravity, Urine 1.022 (1.002-1.036); Urobilinogen 0.2 mg/dL (0.2-1.0)
[2017-11-08] MEDS: Sodium Chloride 0.9% 1,000 ML IV SCH ×3 (07:02→22:40)
[2017-11-08] MEDS ORDERED: Vancomycin HCl 1.5 GM in Sodium Chloride 0.9% 250 ML 300 ML IVPB SCH (09:00)
[2017-11-08] MEDS: metroNIDAZOLE 500 MG in Premix Bag 1 BAG IVPB SCH ×2 (11:17→20:34)
[2017-11-08] MEDS: Vancomycin HCl 25 MG/ML Oral PO SCH ×3 (11:17→20:59)
--- NOTE | 2017-11-08 18:19 | PDOC.PN ---
- Subjective Encounter Start Date: 11/08/17 Encounter Start Time: 10:40 Pt seen for followup re: clostridium difficile diarrhea. More alert today. Denies chest pain or shortness of breath. - Objective Resuscitation Status: Resuscitation Status FULL:Full Resuscitation MAR Reviewed: Yes Vital Signs & Weight: Vital Signs (12 hours) Temp Pulse Resp BP Pulse Ox 11/08/17 16:11 99.1 F 74 18 103/54 L 95 11/08/17 11:46 101.8 F H 71 16 121/66 100 11/08/17 08:00 98.8 F 62 16 11/08/17 07:34 98.8 F 62 16 105/60 96 Weight Weight 229 lb 2 oz I&O: 11/07/17 11/08/17 11/09/17 06:59 06:59 06:59 Intake Total 1420 240 Output Total 800 Balance 620 240 Result Diagrams: 11/08/17 04:28 11/08/17 04:28 Additional Labs: Labs reviewed by me Phys Exam - Physical Examination Obese HEENT: moist MMs, sclera anicteric, oral pharynx no lesions, 2+ tonsils Neck: no nodes, no JVD, supple, full ROM Respiratory: no wheezing, no rales, no rhonchi, clear to auscultation bilateral Cardiovascular: RRR, no rub S1, S2 Gastrointestinal: soft, non-tender, positive bowel sounds distention Neurological: moves all 4 limbs Psychiatric: normal affect Deviation from normal: Oriented to person only, not to place or time Dx/Plan (1) C. difficile colitis Status: Acute Comment: continue oral vancomycin, add IV Flagyl. No clear evidence of pneumonia, discontinue other antibiotics. (2) HTN (hypertension) Code(s): I10 - ESSENTIAL (PRIMARY) HYPERTENSION Status: Chronic Comment: controlled (3) Dementia Code(s): F03.90 - UNSPECIFIED DEMENTIA WITHOUT BEHAVIORAL DISTURBANCE Status: Chronic Comment: Mentation improving (4) Dyslipidemia Code(s): E78.5 - HYPERLIPIDEMIA, UNSPECIFIED Status: Chronic Comment: nil acute - Plan * . Review of Systems - Review of Systems Constitutional: negative: fever, chills, sweats, weakness, malaise Respiratory: negative: Cough, Shortness of Breath, SOB with Excertion, Pleuritic Pain, Wheezing Cardiovascular: negative: chest pain, palpitations, orthopnea, paroxysmal nocturnal dyspnea, edema, light headedness Gastrointestinal: negative: Nausea, Vomiting, Abdominal Pain, Diarrhea, Constipation, Melena, Hematochezia Genitourinary: negative: Dysuria, Frequency, Incontinence, Hematuria, Retention Skin: negative: Rash, Lesions, Kaz, Bruising - Medications/Allergies Allergies/Adverse Reactions: Allergies Allergy/AdvReac Type Severity Reaction Status Date / Time No Known Drug Allergies Allergy Verified 10/10/17 03:16 Medications: Current Medications Acetaminophen (Tylenol) 650 mg PO Q4H PRN PRN Reason: Headache/Fever or Pain Last Admin: 11/08/17 16:43 Dose: 650 mg Acetaminophen (Tylenol) 650 mg NE Q4H PRN PRN Reason: Headache/Fever or Pain Acidophilus (Floranex) 1 tab PO DAILY [facility] Allopurinol (Zyloprim) 100 mg PO DAILY [facility] Amlodipine Besylate (Norvasc) 10 mg PO DAILY [facility] Aspirin (Aspirin Chewable) 81 mg PO DAILY [facility] Citalopram Hydrobromide (Celexa) 40 mg PO DAILY [facility] Clonidine (Catapres) 0.1 mg PO DAILY [facility] Diphenhydramine HCl (Benadryl) 25 mg PO HSPRN PRN PRN Reason: Itching & Insomnia Last Admin: 11/07/17 23:51 Dose: 25 mg Gabapentin (Neurontin) 300 mg PO BID [facility] Sodium Chloride (Normal Saline 0.9%) 1,000 mls @ 100 mls/hr IV .Q10H [facility] Last Admin: 11/08/17 16:38 Dose: Not Given Metronidazole 500 mg/ Device 100 mls @ 100 mls/hr IVPB Q8HR [facility] Last Admin: 11/08/17 11:17 Dose: 100 mls Latanoprost (Xalatan 0.005% Ophth Soln) 1 drop EA EYE DAILY [facility] Oxybutynin Chloride (Ditropan) 5 mg PO DAILY [facility] Vancomycin HCl (First Vancomycin) 125 mg PO 0400,1000,1600,2200 [facility] Last Admin: 11/08/17 16:38 Dose: 125 mg
[2017-11-08] MEDS: Gabapentin 300 MG CAP PO SCH (20:34)
--- NOTE | 2017-11-08 21:55 | CON ---
DATE OF CONSULTATION: 11/08/2017 HISTORY OF PRESENT ILLNESS: Orion Rubio is an 82-year-old gentleman who was recently in the hosp ital and discharged on 10/22/2017. He had had C. diff and was treated for 14 days with vancomycin. He had been in the hospital before that, I saw him on a previous hospitalization when he came in with an acute diarrheal illness, C. diff was negative then and it was felt that he had an acute gastritis with some sort and he was treated with broad-spectrum antibiotics. I saw the patient back in the office this past Saturday. He had finished the antibiotics about 3 days before and had been doing well with no recurrence of diarrhea. Yesterday; however, the patient's fam cameron called to office and stated that he had some fever and had some confusion. He is having no diarr hea. We recommended they bring him to the office or the emergency room and ultimately brought him to the emergency room. In the emergency room, he had a chest x-ray, which showed cardiomegaly and mild vascular congestion. He told in the emergency room that he likely had pneumonia. They are going to place him on antibiotics and he was going to be admitted. He only had one bowel movement that was y and it was soft like toothpaste, but the son notes that one did smell like C. diff. He pers uaded the staff to send the stool for toxin antigen, which was positive for both. He was admitted wi th diagnosis of pneumonia. He has been switched over to oral vancomycin, IV Flagyl for possible recu rrent Clostridium difficile colitis. He did have plain film secondary to protuberant abdomen which s howed some air fluid levels with no overt dilatation or distention or increased intestinal gas. Presently, he had some Tylenol for fever and he is feeling better. Son notes when he is not having f ever, he seems to be much more alert and oriented. PAST MEDICAL HISTORY: Dementia; seizure; tremor; hypertension; dyslipidemia; C. difficile colitis, r ecurrent, this is the second bout. PAST SURGICAL HISTORY: Prostatectomy. REVIEW OF SYSTEMS: Negative for dysphagia, odynophagia, melena, hematochezia, hematemesis, or abdomi nal pain. SOCIAL HISTORY: Patient lives with his son and [id number]. He does not smoke or drink alcohol. ALLERGIES: None known. MEDICATIONS AT HOME: Myrbetriq, hydrochlorothiazide, lisinopril, amlodipine, allopurinol, aspirin, C elexa, gabapentin, eyedrops. Medicines presently Tylenol, Floranex Norvasc, , aspirin, Celexa, Catapres, Benadryl, Neurontin, Ditropan, vancomycin 125 p.o. q.i.d., Flagyl 500 mg IV q.8. PHYSICAL EXAMINATION: VITAL SIGNS: Temperature of 101.8, 102.5 yesterday. Blood pressure was 121/66, respirations 1 8. GENERAL: Patient alert and oriented to person, place, and time. LUNGS: Clear. CARDIOVASCULAR: Heart regular without clicks, rubs or murmurs. ABDOMEN: Soft and nontender. It is protuberant. Bowel sounds are positive. EXTREMITIES: No clubbing, cyanosis, or edema. LABORATORY AND X-RAY FINDINGS: White count was 16,000 yesterday, 10,000 today. Hemoglobin is 13, pl atelet count is 144. INR is 1. Sodium 138, potassium 4.7, BUN and creatinine are 35 and 1.8. LFTs were normal yesterday except for an albumin of 4, protein 6.7. Liver function tests were normal. St ool as noted above. Blood cultures are pending. ASSESSMENT: Recurrent fever, no real diarrhea, but he did have some pasty stools, C. 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 I think with the family noting the smell being very similar, to be likely diagnosis. He does not have any signs of pneumonia on chest x -ray, may have some mild fluid overload. RECOMMENDATIONS: 1. Judicious use of fluids in light of his cardiomegaly. 2. Continue IV Flagyl and p.o. vancomycin, probiotic. He only be treated for 2 weeks for full dose vancomycin and then tapering dose for [address] Mccollum will check on him tomorrow, otherwise I will return on Saturday.
[2017-11-09] MEDS: diphenhydrAMINE 25 MG CAP PO PRN (03:27)
[2017-11-09] MEDS: metroNIDAZOLE 500 MG in Premix Bag 1 BAG IVPB SCH ×3 (05:14→21:29)
[2017-11-09] MEDS: Vancomycin HCl 25 MG/ML Oral PO SCH ×4 (05:14→21:30)
[2017-11-09 08:28] LABS: Vancomycin, Trough 6.4 ug/mL
[2017-11-09] MEDS: Allopurinol 100 MG TAB PO SCH (08:58)
[2017-11-09] MEDS: Citalopram 20 MG TAB PO SCH (08:59)
[2017-11-09] MEDS: Gabapentin 300 MG CAP PO SCH ×2 (08:59→21:30)
[2017-11-09] MEDS: Lactinex Tablet PO SCH (08:59)
[2017-11-09] MEDS: cloNIDine 0.1 MG TAB PO SCH (08:59)
[2017-11-09] MEDS: Amlodipine 10 MG TAB PO SCH (08:59)
[2017-11-09] MEDS: Oxybutynin 5 MG TAB PO SCH (09:00)
[2017-11-09] MEDS: Latanoprost 0.005% Ophth Soln 2.5 ml Bottle EA EYE SCH (10:43)
[2017-11-09] MEDS: Sodium Chloride 0.9% 1,000 ML IV SCH ×2 (10:43→21:28)
--- NOTE | 2017-11-09 13:59 | PRG ---
DATE OF SERVICE: 11/09/2017 GI INPATIENT DAILY PROGRESS NOTE SUBJECTIVE: Mr. Rubio has now been afebrile for 24 hours. His son tells me that he had some delir ium through the night last night. He is currently sleeping this morning, but he is not complaining o f any abdominal pain. He has really not had any diarrhea. He is tolerating his regular diet. He is receiving IV Flagyl and oral vancomycin again. OBJECTIVE: VITAL SIGNS: Temperature 98.5, blood pressure 125/65, 100% oxygen saturation on 2 liters nasal cannu la, pulse 70. GENERAL: Somnolent but arousable. HEART: Regular rate and rhythm. LUNGS: Clear to auscultation bilaterally. ABDOMEN: Bowel sounds present, soft and nontender to palpation. EXTREMITIES: No peripheral edema. LABORATORY STUDIES: Sodium 138, potassium 4.7, BUN 35, creatinine 1.80. WBC 10.8, hemoglobin 13.0, platelets 144. ASSESSMENT AND PLAN: Clostridium difficile colitis, recurrent. This is an atypical presentation of recurrent C. difficile colitis. Note, the antigen and toxin are positive and he has now been afebril e for 24 hours after restarting oral vancomycin and IV Flagyl. I agree with Dr. Elliott' plan for 2 w eeks of full dose oral vancomycin four times daily, then tapering dose for the next 6 weeks. Continu e the IV Flagyl while hospitalized, but discharge only on oral vancomycin. I think if he is continui ng to do well without recurrence of fever, he could be potentially discharged from the hospital even this evening or tomorrow morning on the oral vancomycin. We will have him follow up closely in the [facility] with Dr. Elliott or his PA in the next week or two. The capsule formulation of oral vancomyc in 125 mg should be fine. Please call back anytime with questions or concerns.
--- NOTE | 2017-11-09 15:44 | PDOC.PN ---
- Subjective Encounter Start Date: 11/09/17 Encounter Start Time: 15:41 Patient seen and examined. Patient was sleepy when seen. Per nurse patient had urinary retention of >400 cc on bladder scan. Since str8 caths has been done but still patient continued to retain, a harley was placed. Otherwise no acute overnight events. - Objective Resuscitation Status: Resuscitation Status FULL:Full Resuscitation MAR Reviewed: Yes Vital Signs & Weight: Vital Signs (12 hours) Temp Pulse Resp BP BP Pulse Ox 11/09/17 15:26 98.8 F 65 18 149/66 H 93 L 11/09/17 11:51 99.7 F H 62 16 120/59 L 97 11/09/17 11:00 99.7 F H 62 16 97 11/09/17 08:59 70 125/65 11/09/17 04:00 98.5 F 70 18 125/65 100 Weight Weight 229 lb 2 oz I&O: 11/08/17 11/09/17 11/10/17 06:59 06:59 06:59 Intake Total 1420 3800 Output Total 800 600 Balance 620 3200 Result Diagrams: 11/08/17 04:28 11/08/17 04:28 Phys Exam - Physical Examination Constitutional: NAD HEENT: PERRLA, moist MMs Neck: no JVD Respiratory: no wheezing Cardiovascular: RRR, no significant murmur, no rub Gastrointestinal: soft, non-tender, no distention, positive bowel sounds Musculoskeletal: no edema, pulses present Neurological: non-focal, normal sensation, moves all 4 limbs Psychiatric: normal affect, A&O x 3 Skin: no rash, normal turgor Dx/Plan (1) C. difficile colitis Status: Acute Comment: continue oral vancomycin, add IV Flagyl. No clear evidence of pneumonia, discontinue other antibiotics. (2) Urinary retention Code(s): R33.9 - RETENTION OF URINE, UNSPECIFIED Status: Acute (3) CARMEN (acute kidney injury) Code(s): N17.9 - ACUTE KIDNEY FAILURE, UNSPECIFIED Status: Acute (4) Dyslipidemia Code(s): E78.5 - HYPERLIPIDEMIA, UNSPECIFIED Status: Chronic Comment: consulted Nephrology. Will trend cr. (5) HTN (hypertension) Code(s): I10 - ESSENTIAL (PRIMARY) HYPERTENSION Status: Chronic Comment: controlled (6) Morbid obesity Code(s): E66.01 - MORBID (SEVERE) OBESITY DUE TO EXCESS CALORIES Status: Acute - Plan cont current plan of care * . Review of Systems - Review of Systems Constitutional: negative: fever, chills, sweats, weakness, malaise, other Eyes: negative: Pain, Vision Change, Conjunctivae Inflammation, Eyelid Inflammation, Redness, Other ENT: negative: Ear Pain, Ear Discharge, Nose Pain, Nose Discharge, Nose Congestion, Mouth Pain, Mouth Swelling, Throat Pain, Throat Swelling, Other Respiratory: negative: Cough, Dry, Shortness of Breath, Hemoptysis, SOB with Excertion, Pleuritic Pain, Sputum, Wheezing Cardiovascular: negative: chest pain, palpitations, orthopnea, paroxysmal nocturnal dyspnea, edema, light headedness, other Gastrointestinal: negative: Nausea, Vomiting, Abdominal Pain, Diarrhea, Constipation, Melena, Hematochezia, Other Genitourinary: Retention Musculoskeletal: negative: Neck Pain, Shoulder Pain, Arm Pain, Back Pain, Hand Pain, Leg Pain, Foot Pain, Other Skin: negative: Rash, Lesions, Kaz, Bruising, Other Neurological: negative: Weakness, Numbness, Incoordination, Change in Speech, Seizures, Other - Medications/Allergies Allergies/Adverse Reactions: Allergies Allergy/AdvReac Type Severity Reaction Status Date / Time No Known Drug Allergies Allergy Verified 10/10/17 03:16 Medications: Current Medications Acetaminophen (Tylenol) 650 mg PO Q4H PRN PRN Reason: Headache/Fever or Pain Last Admin: 11/08/17 16:43 Dose: 650 mg Acetaminophen (Tylenol) 650 mg [place] Q4H PRN PRN Reason: Headache/Fever or Pain Acidophilus (Floranex) 1 tab PO DAILY [facility] Last Admin: 11/09/17 08:59 Dose: 1 tab Allopurinol (Zyloprim) 100 mg PO DAILY [facility] Last Admin: 11/09/17 08:58 Dose: 100 mg Amlodipine Besylate (Norvasc) 10 mg PO DAILY [facility] Last Admin: 11/09/17 08:59 Dose: 10 mg Aspirin (Aspirin Chewable) 81 mg PO DAILY [facility] Last Admin: 11/09/17 08:59 Dose: 81 mg Citalopram Hydrobromide (Celexa) 40 mg PO DAILY [facility] Last Admin: 11/09/17 08:59 Dose: 40 mg Clonidine (Catapres) 0.1 mg PO DAILY [facility] Last Admin: 11/09/17 08:59 Dose: 0.1 mg Diphenhydramine HCl (Benadryl) 25 mg PO HSPRN PRN PRN Reason: Itching & Insomnia Last Admin: 11/09/17 03:27 Dose: 25 mg Gabapentin (Neurontin) 300 mg PO BID [facility] Last Admin: 11/09/17 08:59 Dose: 300 mg Sodium Chloride (Normal Saline 0.9%) 1,000 mls @ 100 mls/hr IV .Q10H [facility] Last Admin: 11/09/17 10:43 Dose: 1,000 mls Metronidazole 500 mg/ Device 100 mls @ 100 mls/hr IVPB Q8HR [facility] Last Admin: 11/09/17 13:00 Dose: 100 mls Latanoprost (Xalatan 0.005% Oph Soln) 1 drop EA EYE DAILY [facility] Last Admin: 11/09/17 10:43 Dose: 1 drop Oxybutynin Chloride (Ditropan) 5 mg PO DAILY [facility] Last Admin: 11/09/17 09:00 Dose: 5 mg Vancomycin HCl (First Vancomycin) 125 mg PO 0400,1000,1600,2200 [facility] Last Admin: 11/09/17 15:31 Dose: 125 mg
--- NOTE | 2017-11-09 17:04 | ULT ---
RENAL ULTRASOUND 11/09/17 COMPARISON: None. HISTORY: Acute kidney injury. TECHNIQUE: Multiplanar child scale sonographic imaging of the kidneys and the urinary bladder obtained. FINDINGS: Jain catheter is present within a decompressed urinary bladder. Right kidney measures 10.2 x 6.0 x 5 .4 cm and left kidney measures 10.1 x 6.0 x 5.5 cm. There is no renal mass, hydronephrosis, or renal stones seen on either side. IMPRESSION: Unremarkable renal ultrasound. POS: [facility]
--- NOTE | 2017-11-09 19:08 | CON ---
DATE OF CONSULTATION: 11/09/2017 CONSULTING PHYSICIAN: . REASON FOR CONSULTATION: Acute kidney injury. REASON FOR ADMISSION: Altered mentation. HISTORY OF PRESENT ILLNESS: An 82-year-old white male with history of dementia , tremor, hypertension who came to the hospital with above complaints and was found have elevated creatinine. The patient also has urinary retention with 460 mL of urine and has Jain catheter with drainage of 460 mL of urine. The patient is feeling better. Denies any similar complaints. Does have dementia. No chest pain, no fever or chills. No nausea or vomiting reported. PAST MEDICAL HISTORY: Positive for dementia, hypertension, hyperlipidemia, Clostridium difficile colitis, gout, and neuropathy. PAST SURGICAL HISTORY: Prostatectomy. HOME MEDICATIONS: Myrbetriq, clonidine, hydrochlorothiazide, lisinopril, allopurinol, amlodipine, aspirin, Celexa, gabapentin, multivitamin. ALLERGIES: No known drug allergies. SOCIAL HISTORY: No smoking or alcohol. FAMILY HISTORY: No history of kidney disease. REVIEW OF SYSTEMS: The following complete review of systems was negative, unless otherwise mentioned in the HPI or below: Constitutional: Weight loss or gain, ability to conduct usual activities. Skin: Rash, itching. Eyes: Double vision, pain. ENT/Mouth: Nose bleeding, neck stiffness, pain, tenderness. Cardiovascular: Palpitations, dyspnea on exertion, orthopnea. Respiratory: Shortness of breath, wheezing, cough, hemoptysis, fever or night sweats. Gastrointestinal: Poor appetite, abdominal pain, heartburn, nausea, vomiting, constipation, or diarrhea. Genitourinary: Urgency, frequency, dysuria, nocturia. Musculoskeletal: Pain, swelling. Neurologic/Psychiatric: Anxiety, depression. Allergy/Immunologic: Skin rash, bleeding tendency. PHYSICAL EXAMINATION: GENERAL: This is an elderly white male in no apparent distress. VITAL SIGNS: Temperature 99.7, pulse 60, respiratory rate 18, blood pressure 120/59. HEENT: Atraumatic, normocephalic. Oral mucosa is moist. NECK: Supple. HEART: S1, S2 heard. Rate and rhythm regular. RESPIRATORY: Clear. GASTROINTESTINAL: Abdomen is soft. MUSCULOSKELETAL: No tenderness, no edema. DERMATOLOGIC: No skin rash. NEUROLOGIC: Alert, awake. PSYCHIATRIC: Mood and affect normal. LABORATORY DATA: Hemoglobin is 13.0. Potassium 4.7, BUN 35, creatinine . ASSESSENT: 1. Kidney injury on chronic kidney stage 3, most likely from obstruction. Agree with Susy. We will check renal ultrasound. Continue IV fluids as tolerated. 2. Hypotension, stable. 3. Edema, controlled. 4. Anemia. 5. History of dementia. 6. Check labs in the morning. Avoid nephrotoxins. We will follow. MTDD
[2017-11-10] MEDS: Vancomycin HCl 25 MG/ML Oral PO SCH ×4 (04:25→21:24)
[2017-11-10] MEDS: metroNIDAZOLE 500 MG in Premix Bag 1 BAG IVPB SCH ×3 (06:13→21:23)
[2017-11-10] MEDS: Sodium Chloride 0.9% 1,000 ML IV SCH ×2 (06:14→09:41)
[2017-11-10 06:21] LABS: Anion Gap 10 mmol/L (10-20); BUN (Urea Nitrogen) 27 mg/dL (8.4-25.7); Calc. Creatinine Clearance 87 mL/min (70-130); Calcium 8.6 mg/dL (7.8-10.44); Carbon Dioxide 24 mmol/L (23-31); Chloride 109 mmol/L (98-107); Estimated GFR-MDRD 77; Glucose 108 mg/dL (83-110); Magnesium 1.7 mg/dL (1.6-2.6); Potassium 3.4 mmol/L (3.5-5.1); Sodium 140 mmol/L (136-145)
[2017-11-10] MEDS: Citalopram 20 MG TAB PO SCH (08:38)
[2017-11-10] MEDS: Amlodipine 10 MG TAB PO SCH (08:39)
[2017-11-10] MEDS: cloNIDine 0.1 MG TAB PO SCH (08:40)
[2017-11-10] MEDS: Allopurinol 100 MG TAB PO SCH (08:40)
[2017-11-10] MEDS: Gabapentin 300 MG CAP PO SCH ×2 (08:40→21:23)
[2017-11-10] MEDS: Lactinex Tablet PO SCH (08:41)
[2017-11-10] MEDS: Latanoprost 0.005% Ophth Soln 2.5 ml Bottle EA EYE SCH (08:41)
[2017-11-10] MEDS: Oxybutynin 5 MG TAB PO SCH (09:40)
[2017-11-10] MEDS ORDERED: Potassium Chloride 20 MEQ TAB PO SCH (10:00)
--- NOTE | 2017-11-10 14:34 | PRG ---
DATE OF SERVICE: 11/10/2017 SUBJECTIVE: Patient was seen and examined at bedside and overnight events noted. Patient denies any shortness of breath or chest pain or palpitation. No history of nausea or vomitin g or diarrhea or fever or chills or cramps. OBJECTIVE: GENERAL: This is an elderly white male, in no apparent distress. VITAL SIGNS: Temperature 98.0, pulse 55, respiratory rate 16, blood pressure 121/68. HEENT: Atraumatic, normocephalic. Oral mucosa is moist. NECK: Supple. CARDIOVASCULAR: S1 and S2 heard. Rate and rhythm regular. RESPIRATORY: Clear to auscultation. GASTROINTESTINAL: Abdomen is soft. MUSCULOSKELETAL: No tenderness. No edema. DERMATOLOGIC: No skin rash. NEUROLOGIC: Alert and awake and oriented x3. No focal neurologic deficits. Moving all the extremit ies. PSYCHIATRIC: Mood and affect normal. LABORATORY DATA: Creatinine 0.9, potassium 3.4, bicarbonate is 24. ASSESSMENT AND PLAN: 1. Acute kidney injury on chronic kidney disease stage 3. Renal function likely from urinary retention. 2. Urinary retention on Jain. Recommend bladder draining before discontinuation of Jain. We will need follow up with Urology also. 3. Edema, controlled. 4. Hypertension. 5. Anemia. 6. Dementia. 7. Renal function better. I will sign off. Please call back with any questions.
--- NOTE | 2017-11-10 15:12 | PRG ---
DATE OF SERVICE: 11/10/2017 GI INPATIENT DAILY PROGRESS NOTE SUBJECTIVE: Mr. Rubio is awake and feeling well today. He denies any abdominal pain or nausea. Natasha carlton is tolerating his diet and eating well. No diarrhea today. He has been afebrile. He did have radha e urinary retention and his Jain catheter remains in place. OBJECTIVE. VITAL SIGNS: Temperature 98.0, pulse 55, blood pressure 121/68, 97% oxygen saturation on 2 liters by nasal cannula. GENERAL: No acute distress. HEART: Regular rate and rhythm. LUNGS: Clear to auscultation bilaterally. ABDOMEN: Soft and nontender to deep palpation throughout. EXTREMITIES: No peripheral edema. He does have a Jain catheter in place. LABORATORY STUDIES: Sodium 140, potassium 3.4, BUN 27, creatinine came down to 0.93, magnesium 1.7, calcium 8.6. ASSESSMENT AND PLAN: 1. Recurrent Clostridium difficile colitis. Continue with the oral vancomycin 125 mg 4 times daily for the next 2 weeks, followed by an extended taper as previously outlined by Dr. Elliott. Either the oral capsule formulation or the liquid formulation is okay, whatever, is less expensive for the dave ent. From a gastrointestinal standpoint, the patient could be discharged from the hospital. 2. Urinary retention. The patient's Jain catheter remains in place. Note improvement in renal fun ction from yesterday. Nephrology has signed off. Management per primary service.
--- NOTE | 2017-11-10 19:23 | PDOC.PN ---
- Subjective Encounter Start Date: 11/10/17 Encounter Start Time: 12:00 patient is seen and examined by me. Son in the room. spoke to patient and son about the harley removal and void trial. Will discontinue oxybutinine which can be contributing to patients urinary retention. Will ask family to start it after patient starts urinating well again. NAD - Objective Resuscitation Status: Resuscitation Status FULL:Full Resuscitation MAR Reviewed: Yes Vital Signs & Weight: Vital Signs (12 hours) Temp Pulse Resp BP BP Pulse Ox 11/10/17 16:00 97.9 F 11/10/17 15:29 97.9 F 50 L 18 156/66 H 95 11/10/17 11:07 98.0 F 55 L 16 121/68 97 11/10/17 08:40 136/61 11/10/17 08:39 64 136/61 11/10/17 08:00 97.7 F 64 16 Weight Weight 229 lb 2 oz I&O: 11/09/17 11/10/17 11/11/17 06:59 06:59 06:59 Intake Total 3800 1800 2590 Output Total 600 1750 900 Balance 3200 50 1690 Result Diagrams: 11/08/17 04:28 11/10/17 05:04 Phys Exam - Physical Examination Constitutional: NAD HEENT: PERRLA, moist MMs Neck: no JVD Respiratory: no wheezing, no rales, no rhonchi, clear to auscultation bilateral Cardiovascular: RRR, no significant murmur Gastrointestinal: soft, non-tender, no distention, positive bowel sounds harley inserted. Musculoskeletal: no edema, pulses present Neurological: non-focal, normal sensation, moves all 4 limbs Psychiatric: normal affect Skin: no rash Dx/Plan (1) C. difficile colitis Status: Acute Comment: continue oral vancomycin. Will do voiding trial, then possible discharge in the AM. (2) Urinary retention Code(s): R33.9 - RETENTION OF URINE, UNSPECIFIED Status: Acute Comment: will start voiding trial. has discontinued oxybutinin (3) CARMEN (acute kidney injury) Code(s): N17.9 - ACUTE KIDNEY FAILURE, UNSPECIFIED Status: Acute Comment: improved. nephro has signed of. (4) Dyslipidemia Code(s): E78.5 - HYPERLIPIDEMIA, UNSPECIFIED Status: Chronic (5) HTN (hypertension) Code(s): I10 - ESSENTIAL (PRIMARY) HYPERTENSION Status: Chronic Comment: controlled (6) Morbid obesity Code(s): E66.01 - MORBID (SEVERE) OBESITY DUE TO EXCESS CALORIES Status: Acute - Plan * . Review of Systems - Review of Systems Constitutional: negative: fever, chills, sweats, weakness, malaise, other Eyes: negative: Pain, Vision Change, Conjunctivae Inflammation, Eyelid Inflammation, Redness, Other ENT: negative: Ear Pain, Ear Discharge, Nose Pain, Nose Discharge, Nose Congestion, Mouth Pain, Mouth Swelling, Throat Pain, Throat Swelling, Other Respiratory: negative: Cough, Dry, Shortness of Breath, Hemoptysis, SOB with Excertion, Pleuritic Pain, Sputum, Wheezing Cardiovascular: negative: chest pain, palpitations, orthopnea, paroxysmal nocturnal dyspnea, edema, light headedness, other Gastrointestinal: negative: Nausea, Vomiting, Abdominal Pain, Diarrhea, Constipation, Melena, Hematochezia, Other Genitourinary: Retention Musculoskeletal: negative: Neck Pain, Shoulder Pain, Arm Pain, Back Pain, Hand Pain, Leg Pain, Foot Pain, Other Skin: negative: Rash, Lesions, Kaz, Bruising, Other Neurological: negative: Weakness, Numbness, Incoordination, Change in Speech, Confusion, Seizures, Other - Medications/Allergies Allergies/Adverse Reactions: Allergies Allergy/AdvReac Type Severity Reaction Status Date / Time No Known Drug Allergies Allergy Verified 10/10/17 03:16 Medications: Current Medications Acetaminophen (Tylenol) 650 mg PO Q4H PRN PRN Reason: Headache/Fever or Pain Last Admin: 11/08/17 16:43 Dose: 650 mg Acetaminophen (Tylenol) 650 mg [place] Q4H PRN PRN Reason: Headache/Fever or Pain Acidophilus (Floranex) [address] [facility] Last Admin: 11/10/17 08:41 Dose: 1 tab Allopurinol (Zyloprim) [address] [facility] Last Admin: 11/10/17 08:40 Dose: 100 mg Amlodipine Besylate (Norvasc) [address] [facility] Last Admin: 11/10/17 08:39 Dose: 10 mg Aspirin (Aspirin Chewable) [address] [facility] Last Admin: 11/10/17 08:38 Dose: 81 mg Citalopram Hydrobromide (Celexa) [address] [facility] Last Admin: 11/10/17 08:38 Dose: 40 mg Clonidine (Catapres) 0.[address] [facility] Last Admin: 11/10/17 08:40 Dose: 0.1 mg Diphenhydramine HCl (Benadryl) 25 mg PO HSPRN PRN PRN Reason: Itching & Insomnia Last Admin: 11/09/17 03:27 Dose: 25 mg Gabapentin (Neurontin) [address] [facility] Last Admin: 11/10/17 08:40 Dose: 300 mg Metronidazole 500 mg/ Device 100 mls @ 100 mls/hr IVPB Q8HR [facility] Last Admin: 11/10/17 13:37 Dose: 100 mls Latanoprost (Xalatan 0.005% [facility]) [address] [facility] Last Admin: 11/10/17 08:41 Dose: 1 drop Oxybutynin Chloride (Ditropan) [address] [facility] Last Admin: 11/10/17 09:40 Dose: 5 mg Vancomycin HCl (First Vancomycin) 125 mg PO 0400,1000,1600,2200 [facility] Last Admin: 11/10/17 15:20 Dose: 125 mg
[2017-11-11] MEDS: diphenhydrAMINE 25 MG CAP PO PRN (00:49)
[2017-11-11] MEDS: Vancomycin HCl 25 MG/ML Oral PO SCH ×2 (05:13→09:12)
[2017-11-11] MEDS: metroNIDAZOLE 500 MG in Premix Bag 1 BAG IVPB SCH (05:13)
[2017-11-11] MEDS: Citalopram 20 MG TAB PO SCH (08:07)
[2017-11-11] MEDS: Gabapentin 300 MG CAP PO SCH (08:07)
[2017-11-11] MEDS: cloNIDine 0.1 MG TAB PO SCH (08:07)
[2017-11-11] MEDS: Oxybutynin 5 MG TAB PO SCH (08:07)
[2017-11-11] MEDS: Allopurinol 100 MG TAB PO SCH (08:10)
[2017-11-11] MEDS: Amlodipine 10 MG TAB PO SCH (08:10)
[2017-11-11] MEDS: Lactinex Tablet PO SCH (08:10)
[2017-11-11] MEDS: Latanoprost 0.005% Ophth Soln 2.5 ml Bottle EA EYE SCH (08:11)
[2017-11-11 14:11] VITALS: BP 170/72; TEMP 97.6
--- NOTE | 2017-11-11 23:51 | DIS ---
On the day of discharge, the patient was examined and seen by me. The patient was lying in bed very comfortably. Patient was able to urinate by himself, somewhat by the bedside, not have any acute distress. The patient was stable. DISCHARGE DIAGNOSES: 1. Clostridium difficile colitis. 2. Urinary retention. 3. Acute on chronic kidney injury. 4. Dyslipidemia. 5. Hypertension. 6. Morbid obesity. 7. Dementia. HISTORY OF PRESENT ILLNESS: This is an 82-year-old gentleman with past medical history of dementia, essential tremor, hypertension, dyslipidemia, Clostridium difficile colitis, presenting in the hospital for altered mental status. Per the history, patient had a temperature of 101 degrees Fahrenheit and the patient was confused; therefore, an ambulance was called and the patient was brought to the ED to be evaluated. In the ED, the patient was admitted for severe sepsis and pneumonia. The patient was started on IV antibiotics. GI was consulted to come and see the patient. Per GI, the patient was started on oral vancomycin. Patient tolerated the treatment well and the patient was discharged home on vancomycin high dose and to be tapered off for 6 weeks. DISCHARGE MEDICATIONS: Kindly refer to the electronic medical records for discharge medications. DISPOSITION: The patient was discharged in a good and stable condition. The patient was instructed to perform activities as tolerated. LABORATORY AND DIAGNOSTIC DATA: Chest x-ray showed cardiomegaly and mild vascular congestion. Abdominal x-ray showed small amount of air fluid levels seen within the left hemicolon. Lung bases were clear. No suspicious calcifications. There was scattered degenerative and osteoarthritic changes. On initial lab: WBC was 16.6, today back to 10.8, hemoglobin was 14.8, trended down to 13.0, platelets were around 180s. Electrolytes: Sodium was 139, potassium 4.4, chloride 104, carbon dioxide 26, creatinine 1.45, which trended down to 0.93. Lactate was 1.3. BNP was 214.2. Urinalysis was negative. Discharge encounter took about ~ > 32mins. MTDD
--- NOTE | 2017-11-12 19:27 | PQF ---
I did not discharge this patient. Thanks. [facility] Physician Query Form MORGAN LAFLEUR DREW STEPHENS [id number] [facility] [id number] CLINICAL DOCUMENTATION CLARIFICATION FORM: POST DISCHARGE Addendum to original discharge summary date: ____ Late entry note date: __ DATE: 11/12/17 ATTN: DR. DREW FERRER Please exercise your independent, professional judgment in responding to the clarification form. Clinical indicators are provided on the bottom of this form for your review Please check appropriate box(s) to clarify if the following diagnosis has been ruled in or ruled out: SEVERE SEPSIS [ ] Ruled in diagnosis [ ] Continue to treat [ ] Resolved [ ] Ruled out diagnosis [ ] Cannot rule out diagnosis [ ] Other diagnosis [ ] Unable to determine In addition, please specify: Present on Admission (POA): [ ] Yes [ ] No [ ] Unable to determine For continuity of documentation, please document condition throughout progress notes and discharge summary. Thank You. CLINICAL INDICATORS - SIGNS / SYMPTOMS / LAB "SEVERE SEPSIS" NOTED ON 11/07/17 H&P RISK FACTORS TREATMENTS "IV FLUIDS AND ANTIBIOTICS" NOTED ON 11/07/17 H&P (This form is maintained as a part of the permanent medical record) 2014 [employer]. All Rights Reserved Gonzalez [email or web address] [phone] Page 1 of 2 Note to Provider: In responding to this query, you must exercise independent clinical judgment. The fact that a query is placed does not imply that any particular answer is desired or expected. Please document your response/ clarification to this query in the patients medical record. Your response should clarify and resolve conflicting, ambiguous, or incomplete information in the health record regarding any significant reportable condition or procedure. ( 2008 [facility] Practice Brief, pg. 5) [employer] does not endorse or approve queries developed by the hospital or its agents and issued through the [employer] software that are not in accordance with the rules or regulations promulgated by the Centers for Medicare and Medicaid (CMS), Office of [employer] (OIG), or US Department of Health and Human Services and [facility] 2008 Practice Brief Managing an Effective Query Process or its updates (Practice Brief). HENOK
--- NOTE | 2017-11-12 19:33 | PQF ---
I did not discharge this patient. Thanks. [facility] Physician Query Form MORGAN LAFLEUR DREW STEPHENS [id number] -R- [id number] CLINICAL DOCUMENTATION CLARIFICATION FORM: POST DISCHARGE Addendum to original discharge summary date: ____ Late entry note date: __ DATE:11/12/17 ATTN: DR DREW FERRER Please exercise your independent, professional judgment in responding to the clarification form. Clinical indicators are provided on the bottom of this form for your review Please check appropriate box(s) to clarify if the following diagnosis has been ruled in or ruled out: ACUTE ENCEPHALOPATHY [ ] Ruled in diagnosis [ ] Continue to treat [ ] Resolved [ ] Ruled out diagnosis [ ] Cannot rule out diagnosis [ ] Other diagnosis [ ] Unable to determine In addition, please specify: Present on Admission (POA): [ ] Yes [ ] No [ ] Unable to determine For continuity of documentation, please document condition throughout progress notes and discharge summary. Thank You. CLINICAL INDICATORS - SIGNS / SYMPTOMS / LABS "ACUTE ENCEPHALOPATHY" NOTED ON 11/07/17 H&P TREATMENTS "MONITOR MENTAL STATUS" NOTED ON 11-07-17 H&P (This form is maintained as a part of the permanent medical record) 2014 [employer]. All Rights Reserved Gonzalez [email or web address] [phone] Page 1 of 1 Note to Provider: In responding to this query, you must exercise independent clinical judgment. The fact that a query is placed does not imply that any particular answer is desired or expected. Please document your response/ clarification to this query in the patients medical record. Your response should clarify and resolve conflicting, ambiguous, or incomplete information in the health record regarding any significant reportable condition or procedure. ( 2008 [facility] Practice Brief, pg. 5) [employer] does not endorse or approve queries developed by the hospital or its agents and issued through the [employer] software that are not in accordance with the rules or regulations promulgated by the Centers for Medicare and Medicaid (CMS), Office of [employer] (OIG), or US Department of Health and Human Services and [facility] 2008 Practice Brief Managing an Effective Query Process or its updates (Practice Brief). HENOK
--- NOTE | 2017-11-16 14:38 | EKG ---
Test Reason : AMS Blood Pressure : / mmHG Vent. Rate : 090 BPM Atrial Rate : 090 BPM P-R Int : 304 ms QRS Dur : 154 ms QT Int : 378 ms P-R-T Axes : 000 -56 000 degrees QTc Int : 462 ms Sinus rhythm with 1st degree A-V block Left axis deviation Right bundle branch block Abnormal ECG Confirmed by JORI JARRETT, ROSANNE Tovar ([id number]), school photograph editor NARESH RENAE ([id number]) on 11/16/2017 2:38:16 PM Referred By: Confirmed By:ROSANNE HSIEH MD
== END 2017-11-11 13:59 | disposition home or self-care (01) | DRG 871 ==
LOC: ERS 14:02 → T4-B 17:05
PROVIDERS: ADMIT Internal Medicine; ATTEND Internal Medicine
DX: A41.9 Sepsis, unspecified organism (principal); G93.40 Encephalopathy, unspecified; A04.72 Enterocolitis due to Clostridium difficile, not specified as recurrent; N17.9 Acute kidney failure, unspecified; R65.20 Severe sepsis without septic shock; R33.9 Retention of urine, unspecified; E78.5 Hyperlipidemia, unspecified; E66.01 Morbid (severe) obesity due to excess calories; Z68.32 Body mass index [BMI] 32.0-32.9, adult; F03.90 Unspecified dementia, unspecified severity, without behavioral disturbance, psychotic disturbance, mood disturbance, and anxiety; G25.0 Essential tremor; I12.9 Hypertensive chronic kidney disease with stage 1 through stage 4 chronic kidney disease, or unspecified chronic kidney disease; N18.3 Chronic kidney disease, stage 3 (moderate); D64.9 Anemia, unspecified; I95.9 Hypotension, unspecified
CPT/HCPCS: 36415; 71045; 74019; 76770; 80048; 80053; 80202; 81003; 83605; 83735; 83880; 85025; 87040; 87086; 87324; 87449; 93005; 96365; 96367; 96375; J1885; J1956; J2543; J3370; J7050

== ENCOUNTER 2018-01-25 14:02 | Emergency (ER) | payer MEDICARE, OTHER ==
--- NOTE | 2018-01-25 15:19 | CT ---
CT HEAD WITHOUT CONTRAST: Date: 01/25/18 Multiple axial tomograms are obtained through the head without IV enhancement. HISTORY: Mental status change. FINDINGS: Mild ventriculomegaly. Mild volume loss. No evidence of intracranial mass or hemorrhage. No evidence of acute infarct. Paranasal sinuses are aerated. There is opacification of the left mastoid air cells . IMPRESSION: No evidence of acute intracranial abnormality. POS: [facility]
[2018-01-25 15:35] LABS: #Basophils 0.1 thou/uL (0.0-0.2); #Eosinphils 0.2 thou/uL (0.0-0.7); #Lymphocytes 2.4 thou/uL (1.20-3.40); #Monocytes 0.7 thou/uL (0.11-0.59); #Neutrophils 4.6 thou/uL (1.40-6.50); %Basophils 0.6 % (0.0-1.0); %Eosinophils 2.9 % (0.0-10.0); %Lymphocytes 30.1 % (21.0-51.0); %Monocytes 9.3 % (0.0-10.0); %Neutrophils 57.1 % (42.0-75.0); Mean Corpuscular HGB CONC 33.6 g/dL (32.0-36.0); Mean Corpuscular Hemoglobin 32.8 pg (27.0-31.0); Mean Corpuscular Volume 97.7 fL (78.0-98.0); Mean Platelet Volume 9.1 fL (7.4-10.4); Platelet Count 175 thou/uL (130-400); RBC Distribution Width 13.1 % (11.5-14.5); Red Blood Cell (RBC) Count 4.58 mill/uL (4.70-6.10)
--- NOTE | 2018-01-25 15:38 | RAD ---
PORTABLE CHEST: 01/25/18 HISTORY: Mental status change. COMPARISON: 11/07/17. FINDINGS/IMPRESSION: Cardiomegaly. Vascular engorgement. No definite infiltrate, although the exam is limited due to poor inspiration. POS: [facility]
[2018-01-25 15:54] LABS: Bilirubin Negative (Negative); Blood, Urine Negative (Negative); Clarity CLEAR (Clear); Glucose, Urine (Dipstick) Negative (Negative); Leukocyte Negative (Negative); Nitrite Negative (Negative); Protein, Urine (Dipstick) Negative (Neg-Trace); Specific Gravity, Urine 1.021 (1.002-1.036); Urobilinogen 0.2 mg/dL (0.2-1.0); pH, Urine 5.5 (5.0-9.0)
[2018-01-25 15:57] LABS: ALT (SGPT) 12 U/L (8-55); AST (SGOT) 17 U/L (5-34); Albumin 4.2 g/dL (3.4-4.8); Alkaline Phosphatase 64 U/L (40-150); Anion Gap 14 mmol/L (10-20); BUN (Urea Nitrogen) 30 mg/dL (8.4-25.7); Bilirubin, Total 0.3 mg/dL (0.2-1.2); Calc. Creatinine Clearance 0 mL/min (70-130); Calcium 10.4 mg/dL (7.8-10.44); Carbon Dioxide 26 mmol/L (23-31); Chloride 106 mmol/L (98-107); Estimated GFR-MDRD 50; Glucose 96 mg/dL (83-110); Potassium 4.5 mmol/L (3.5-5.1); Protein, Total 7.2 g/dL (5.8-8.1); Sodium 141 mmol/L (136-145)
[2018-01-25 16:01] LABS: Troponin I Less than 0.010 ng/mL (< 0.028)
[2018-01-25] MEDS ORDERED: Piperacillin/Tazobactam 4.5 GM VIAL ONE (17:11)
== END 2018-01-25 17:28 | disposition home or self-care (01) ==
LOC: ERS 14:02
DX: R41.82 Altered mental status, unspecified (principal); I10 Essential (primary) hypertension
CPT/HCPCS: 36415; 51701; 70450; 71045; 80053; 81003; 82553; 83605; 84484; 85025; 87086; 93005; 94760; J2543; J3370